=== PATIENT | female | born 1980 | race Caucasian/White ===

== ENCOUNTER 2017-10-28 17:46 | Inpatient (IN) | payer OTHER ==
[2017-10-28 20:36] LABS: Glucose,Whole Blood 118 mg/dL (75-99)
[2017-10-28] MEDS ORDERED: HYDROmorphone 0.5 MG/0.5 ML SYRINGE IVP PRN (23:01)
[2017-10-29] MEDS: METOPROLOL TARTRATE 12.5 MG TAB PO SCH ×3 (00:20→21:56)
[2017-10-29] MEDS: GABAPENTIN 300 MG CAP PO SCH ×4 (00:20→21:57)
[2017-10-29] MEDS: HYDROmorphone 2 MG TAB PO PRN ×4 (00:21→20:01)
[2017-10-29] MEDS: CYCLOBENZAPRINE 10 MG TAB PO SCH ×4 (00:21→21:57)
[2017-10-29] MEDS: PREGABALIN 100 MG CAP PO SCH ×4 (00:26→21:57)
[2017-10-29] MEDS: INSULIN DETEMIR 100 UNIT/ML 10 ML VIAL SQ SCH ×2 (00:26→21:56)
[2017-10-29] MEDS: ALPRAZolam 0.5 MG TAB PO SCH ×4 (00:26→21:57)
[2017-10-29] MEDS: PIPERACILLIN-TAZOBACTAM 3.375 GM in DEXTROSE/WATER 1 50ML.BAG IVPB SCH ×3 (00:34→16:10)
[2017-10-29] MEDS: SODIUM CHLORIDE 0.9% 1,000 ML IV SCH ×4 (00:34→21:57)
[2017-10-29 01:59] LABS: Glucose,Whole Blood 153 mg/dL (75-99)
[2017-10-29] MEDS: traMADol 50 MG TAB PO PRN ×2 (03:43→14:59)
--- NOTE | 2017-10-29 04:13 | HP ---
HISTORY AND PHYSICAL CHIEF COMPLAINTS: Right diabetic foot and as well as diabetes mellitus. 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 The patient has noted a sore nonhealing in the right foot for some time and the patient has uncontrolled diabetes and the patient was transferred to [facility] as a direct admission. There is no history of fever, rigors or chills. No history of headache, loss of consciousness, seizures. PAST MEDICAL HISTORY: Diabetes, hypertension, history of pneumonia, history of small bowel obstruction , history of depression, history of TPN through IV in the outpatient. MEDICATIONS: Home medications: 1. Ultram 100 mg q.4h p.r.n. 2. Coumadin 2.5 mg Thursday and Thursday and 10 mg Thursday, Thursday. 3. Lyrica 200 mg t.i.d. 4. Lopressor 12.5 mg b.i.d. 5. NovoLog 80 subcu q.h.s. a.c. b.i.d. 6. Gabapentin 60 mg t.i.d. 7. Pristiq 100 mg daily. 8. Flexeril 10 mg t.i.d. 9. Ecotrin 81 mg. 10.Abilify 5 mg daily. 11.Xanax 1 mg p.o. t.i.d. ALLERGIES: CYMBALTA. FAMILY HISTORY: History of rheumatoid arthritis in the family. SOCIAL HISTORY: Previous history of smoking. No history of current smoking or alcohol intake. REVIEW OF SYSTEMS: ENT: No diminished vision or hearing. Cardio system: No angina or palpitations. Respiratory: As mentioned earlier. GI no nausea or vomiting. no dysuria. Nervous system: No numbness, weakness. Allergy/Immunology: No asthma or hayfever. Musculoskeletal: As mentioned earlier. HEMATOLOGY/ONCOLOGY: As mentioned earlier. Endocrine: Diabetes. Constitutional: As mentioned earlier. Rheumatology: Negative. Dermatology: Negative. Psychiatric : mentioned earlier. PHYSICAL EXAMINATION: The patient is alert and oriented times three. Pulse is 86, blood pressure 111/ 79, respirations 14, temperature 98 degrees, pulse ox 97% on room air. HEENT: Conjunctivae normal. Oral mucosa moist. Neck is no jugular venous distention. No carotid bruit. No lymph nodes enlargement. Cardiovascular system: S1, S2. No S3, no S4. Respiratory: Breath sounds diminished in the bases. A few scattered rhonchi. No crackles. ABDOMEN: Soft, nontender. No mass palpable. Legs: Significant ulceration of the right sole present, otherwise status post amputation of the 3/5 toes on the right and 5/5 toes on the left. Nervous system: Higher functions as mentioned. Moves all 4 limbs. Otherwise minimal sensory abnormalities noted in the lower limbs. Joints: No Active deforming arthropathy. Lymphatics: No lymph nodes palpable in the neck, axillae or groin. Skin status post central line on the right chest showing minimal brownish discoloration at the entry site. Sutures still present which has been dressed periodically by the home care. LABORATORY DATA: Labs are glucose 118. ASSESSMENT: 1. Right foot ulcer, diabetic ulcer, rule out osteomyelitis. 2. Diabetes type 2 uncontrolled. 3. Right central line for intravenous access for home TPN. 4. 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 5. History of multiple toe amputations. 6. Hypertension. 7. History of pneumonia. 8. History of peripheral neuropathy. 9. History of seizure disorder. 10.History of chronic pain syndrome. 11.History of Methicillin-resistant Staphylococcus aureus. 12.Depression. 13.Coumadin monitoring. RECOMMENDATIONS AND DISCUSSION: In this 37-year-old woman who presented with multiple complex medical issues, we will monitor the patient closely, continue the current medications, management and symptomatic treatment. We will initiate broad-spectrum IV antibiotics. Infectious Disease and vascular surgery consultations. Resume the home medications. Monitor blood sugars closely. Hemoglobin A1c. Cultures. Guarded prognosis because of multiple complex medical issues. Further recommendations to follow. A copy of dictation being forwarded to Dr. Rose Walter who is the primary care physician. MMSELENAL / ANUN: [id number] / MTDD
[2017-10-29 07:14] LABS: Glucose,Whole Blood 114 mg/dL (75-99)
[2017-10-29] MEDS: INSULIN ASPART 100 UNIT/ML 1 ML 10 ML VIAL SQ SCH ×4 (07:36→21:56)
[2017-10-29] MEDS: ACETAMINOPHEN TAB 325 MG TAB PO PRN ×2 (07:36→14:59)
[2017-10-29] MEDS: ARIPiprazole 5 MG TAB PO SCH (07:39)
[2017-10-29] MEDS: ASPIRIN 81 MG PO SCH (07:39)
[2017-10-29] MEDS: PANTOPRAZOLE 40 MG/10 ML VIAL IVP SCH (07:40)
[2017-10-29 08:44] LABS: Anisocytosis Slight; Basophils % (A) 0 %; Eosinophils # (A) 0.1 k/uL (0-0.7); Eosinophils % (A) 1 %; HCT 30.3 % (34.0-46.0); HGB 8.5 gm/dL (11.4-16.0); Hypochromasia Marked; Lymphocytes # (A) 2.5 k/uL (1.0-4.8); Lymphocytes % (A) 22 %; MCH 20.6 pg (25.0-35.0); MCHC 28.1 g/dL (31.0-37.0); MCV 73.2 fL (80.0-100.0); Mean Platelet Volume 6.9; Microcytosis Moderate; Monocytes # (A) 0.5 k/uL (0-1.0); Monocytes % (A) 4 %; Neutrophils # (A) 8.3 k/uL (1.3-7.7); Neutrophils % (A) 72 %; Platelet Count 352 k/uL (150-450); RBC 4.14 m/uL (3.80-5.40); RDW 17.8 % (11.5-15.5); WBC 11.5 k/uL (3.8-10.6)
[2017-10-29 08:57] LABS: INR 2.1 (<1.2)
[2017-10-29 09:03] LABS: Anion Gap 13 mmol/L; Blood Urea Nitrogen 6 mg/dL (7-17); Calcium 8.6 mg/dL (8.4-10.2); Carbon Dioxide 21 mmol/L (22-30); Chloride 107 mmol/L (98-107); Glucose 125 mg/dL (74-99); Magnesium 1.6 mg/dL (1.6-2.3); Phosphorus 3.3 mg/dL (2.5-4.5); Potassium 3.8 mmol/L (3.5-5.1); Sodium 141 mmol/L (137-145)
[2017-10-29 09:04] VITALS: BMI 28.6
--- NOTE | 2017-10-29 10:39 | P.CONS ---
History of Present Illness - Reason for Consult Consult date: 10/29/17 Foot wound - History of Present Illness This is a 37-year-old female patient who has history of previous amputations of the left 5 toes and toes one through 3 on the right foot secondary to osteomyelitis. Her last surgery was in July 2017. 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 Patient has underlying diabetes and she states her last hemoglobin A1c was 7 improved from 13 of last summer. Patient states that on the bottom of her right foot is started out as a blood blister that popped open and started draining a significant amount of blood. She has been following with a surgeon, Dr. Salas, in [place] and last saw him 2 days ago. She was also seen in the emergency center at [place] on October 18 and a culture was obtained. Her has been packing the wound with iodoform gauze. She developed increased pain to the ankle and foot with a throbbing type pain, fever, chills, increased weakness and went to [facility]. A right foot x-ray showed a displaced pathologic fracture in the base of the first metatarsal and concern for osteomyelitis with increased soft tissue swelling as well. Patient was given Zosyn. Her white count was 18.8 and INR 2.17. Urinalysis was negative for urinary tract infection. Lactic acid 1.8. Patient was then transferred to [facility] emergency center for further evaluation and was directly admitted. Patient states she still has fevers with temperature max of 102.2. Patient is maintained on Zosyn. Wound and blood cultures are ordered. Patient quit smoking in August 2017. Review of Systems All systems: negative Constitutional: Reports chills, Reports fatigue, Reports fever, Denies anorexia , Denies poor appetite Eyes: denies blurred vision, denies pain Ears, nose, mouth and throat: Denies dental pain, Denies headache, Denies mouth pain, Denies sore throat, Denies vertigo Cardiovascular: Reports leg edema, Denies chest pain, Denies decreased exercise tolerance, Denies dyspnea on exertion, Denies edema, Denies lightheadedness, Denies shortness of breath, Denies syncope Respiratory: Denies cough, Denies cough with sputum, Denies dyspnea, Denies excessive sputum, Denies hemoptysis, Denies home oxygen, Denies wheezing Gastrointestinal: Denies abdominal pain, Denies diarrhea, Denies nausea, Denies vomiting Genitourinary: Denies dysuria, Denies hematuria Musculoskeletal: Denies myalgias Integumentary: Reports wounds, Denies pruritus, Denies rash Neurological: Denies numbness, Denies weakness Psychiatric: Denies anxiety, Denies depression Endocrine: Denies fatigue, Denies weight change Past Medical History Past Medical History: Diabetes Mellitus, Hypertension, Pneumonia Additional Past Medical History / Comment(s): murmur, [place] pne 3 years ago. pt stated that "2 months ago she coughed up some bloody mucous and dr was going to order a ct scan of chest but has'nt yet-no further episodes", neuropathy,"? seizure unk reason 4 months ago fell and fx rt fibula-casted /no sx.uti's, chronic pain, mesenteric thrombosis, occ heartburn, pvd(toe amputations, psoriases.per pt- had c-diff at [facility] and mrsa 2012 at [facility](face) History of Any Multi-Drug Resistant Organisms: MRSA Year Discovered:: 2012 at [facility](per pt) MDRO Source:: face Additional Past Surgical History / Comment(s): all toes on lt foot ampt, rt foot first,2nd,3rd toes amputated. 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 sx on fallopian tubes"put [place] in fallopian tubes". Past Anesthesia/Blood Transfusion Reactions: No Reported Reaction Smoking Status: Former smoker Additional Past Alcohol Use History / Comment(s): Patient was a smoker and started 15 years of age one and half to 2 packs per day and quit in August 2017. She occasionally uses marijuana. No medical marijuana card. She denies any other street drug use. She denies any alcohol use. Patient lives at home with her and 3 children. There are 2 dogs in the home. [facility] is in place. Patient is not employed. - Past Family History Brother(s) Family Medical History: Rheumatoid Arthritis (RA) Mother Family Medical History: Congestive Heart Failure (CHF), Myocardial Infarction ( [place]) Father Family Medical History: Diabetes Mellitus, Hyperlipidemia, Hypertension Medications and Allergies Home Medications Medication Instructions Recorded Confirmed Type ALPRAZolam [Xanax] 1 mg PO TID 10/28/17 10/28/17 History ARIPiprazole [Abilify] 5 mg PO DAILY 10/28/17 10/28/17 History Aspirin EC [Ecotrin Low Dose] 81 mg PO DAILY 10/28/17 10/28/17 History Cyclobenzaprine [Flexeril] 10 mg PO TID 10/28/17 10/28/17 History Desvenlafaxine Succinate [Pristiq] 100 mg PO DAILY@1200 10/28/17 10/28/17 History Gabapentin 600 mg PO TID 10/28/17 10/28/17 History Insulin Aspart [NovoLOG 80 unit SQ HS 10/28/17 10/28/17 History (formulary)] Insulin Aspart [NovoLOG See Protocol SQ AC-BID 10/28/17 10/28/17 History (formulary)] Metoprolol Tartrate [Lopressor] 12.5 mg PO BID 10/28/17 10/28/17 History Pregabalin [Lyrica] 200 mg PO TID 10/28/17 10/28/17 History Warfarin [Coumadin] 10 mg PO MOFR 10/28/17 10/28/17 History Warfarin [Coumadin] 12.5 mg PO SUTUWETHSA 10/28/17 10/28/17 History traMADol HCL [Ultram] 100 mg PO Q4HR PRN 10/28/17 10/28/17 History Allergies Allergy/AdvReac Type Severity Reaction Status Date / Time duloxetine [From Cymbalta] AdvReac SEZIURES Verified 10/28/17 21:15 Physical Exam Vitals: Vital Signs Temp Pulse Resp BP Pulse Ox 10/29/17 07:00 102.2 F H 98 16 136/85 97 10/28/17 23:00 97.9 F 85 16 140/84 99 10/28/17 21:00 98.0 F 86 14 111/79 96 Intake and Output 10/28/17 10/29/17 10/29/17 22:59 06:59 14:59 Other: Voiding Method Toilet # Voids 0 1 Weight 74.843 kg 75.8 kg 75.8 kg Patient Weight 10/30/17 06:59 Weight 75.8 kg Gen: This is a 37-year-old female. She is sitting up in bed and appears to be comfortable and in no acute distress. HEENT: Head is atraumatic, normocephalic. Pupils equal, round. Sclerae is anicteric. Conjunctiva pink. Mucous members of the mouth are moist. Dentition is in poor order. No thrush noted. NECK: Supple. No JVD. No lymphadenopathy. No thyromegaly. LUNGS: Clear to auscultation. No wheezes or rhonchi. No intercostal retractions. HEART: Regular rate and rhythm. No murmur. ABDOMEN: Soft. Bowel sounds are present. No masses. No tenderness. EXTREMITIES: Left foot has noted amputation of all 5 toes. Dorsalis pedis is weak. Right foot has dressing in place which was not removed. Assessment deferred to Dr. Hills. NEUROLOGICAL: Patient is awake, alert and oriented x3. Cranial nerves 2 through 12 are grossly intact. Results Results: Laboratory Results WBC 11.5 k/uL (3.8-10.6) H 10/29/17 08:03 RBC 4.14 m/uL (3.80-5.40) 10/29/17 08:03 Hgb 8.5 gm/dL (11.4-16.0) L 10/29/17 08:03 Hct 30.3 % (34.0-46.0) L 10/29/17 08:03 MCV 73.2 fL (80.0-100.0) L 10/29/17 08:03 MCH 20.6 pg (25.0-35.0) L 10/29/17 08:03 MCHC 28.1 g/dL (31.0-37.0) L 10/29/17 08:03 RDW 17.8 % (11.5-15.5) H 10/29/17 08:03 Plt Count 352 k/uL (150-450) 10/29/17 08:03 Neutrophils % 72 % 10/29/17 08:03 Lymphocytes % 22 % 10/29/17 08:03 Monocytes % 4 % 10/29/17 08:03 Eosinophils % 1 % 10/29/17 08:03 Basophils % 0 % 10/29/17 08:03 Neutrophils # 8.3 k/uL (1.3-7.7) H 10/29/17 08:03 Lymphocytes # 2.5 k/uL (1.0-4.8) 10/29/17 08:03 Monocytes # 0.5 k/uL (0-1.0) 10/29/17 08:03 Eosinophils # 0.1 k/uL (0-0.7) 10/29/17 08:03 Basophils # 0.0 k/uL (0-0.2) 10/29/17 08:03 Hypochromasia Marked 10/29/17 08:03 Anisocytosis Slight 10/29/17 08:03 Microcytosis Moderate 10/29/17 08:03 PT 19.0 sec (9.0-12.0) H 10/29/17 08:03 INR 2.1 (<1.2) H 10/29/17 08:03 Sodium 141 mmol/L (137-145) 10/29/17 08:03 Potassium 3.8 mmol/L (3.5-5.1) 10/29/17 08:03 Chloride 107 mmol/L (98-107) 10/29/17 08:03 Carbon Dioxide 21 mmol/L (22-30) L 10/29/17 08:03 Anion Gap 13 mmol/L 10/29/17 08:03 BUN 6 mg/dL (7-17) L 10/29/17 08:03 Creatinine 0.71 mg/dL (0.52-1.04) 10/29/17 08:03 Est GFR (MDRD) Af Amer >60 (>60 ml/min/1.73 sqM) 10/29/17 08:03 Est GFR (MDRD) Non-Af >60 (>60 ml/min/1.73 sqM) 10/29/17 08:03 Glucose 125 mg/dL (74-99) H 10/29/17 08:03 POC Glucose (mg/dL) 114 mg/dL (75-99) H 10/29/17 07:06 POC Glu Coal Deliverer ID 10/29/17 07:06 Plasma Lactic Acid Jameson 1.1 mmol/L (0.7-2.0) 10/29/17 09:13 Calcium 8.6 mg/dL (8.4-10.2) 10/29/17 08:03 Phosphorus 3.3 mg/dL (2.5-4.5) 10/29/17 08:03 Magnesium 1.6 mg/dL (1.6-2.3) 10/29/17 08:03 CBC & Chem 7: 10/29/17 08:03 10/29/17 08:03 Labs: Abnormal Lab Results - Last 24 Hours (Table) 10/28/17 10/29/17 10/29/17 Range/Units 20:35 01:56 07:06 WBC (3.8-10.6) k/uL Hgb (11.4-16.0) gm/dL Hct (34.0-46.0) % MCV (80.0-100.0) fL MCH (25.0-35.0) pg MCHC (31.0-37.0) g/dL RDW (11.5-15.5) % Neutrophils # (1.3-7.7) k/uL PT (9.0-12.0) sec INR (<1.2) Carbon Dioxide (22-30) mmol/L BUN (7-17) mg/dL Glucose (74-99) mg/dL POC Glucose (mg/dL) 118 H 153 H 114 H (75-99) mg/dL 10/29/17 10/29/17 10/29/17 Range/Units 08:03 08:03 08:03 WBC 11.5 H (3.8-10.6) k/uL Hgb 8.5 L (11.4-16.0) gm/dL Hct 30.3 L (34.0-46.0) % MCV 73.2 L (80.0-100.0) fL MCH 20.6 L (25.0-35.0) pg MCHC 28.1 L (31.0-37.0) g/dL RDW 17.8 H (11.5-15.5) % Neutrophils # 8.3 H (1.3-7.7) k/uL PT 19.0 H (9.0-12.0) sec INR 2.1 H (<1.2) Carbon Dioxide 21 L (22-30) mmol/L BUN 6 L (7-17) mg/dL Glucose 125 H (74-99) mg/dL POC Glucose (mg/dL) (75-99) mg/dL Assessment and Plan Plan: This is a 37-year-old female patient presents to the hospital with sepsis secondary to nonhealing wound to the right foot plantar surface. Patient is currently on Zosyn and vancomycin will be added. Bone scan will be ordered. Local wound care will be addressed. Patient is also followed by Dr. Obrien. Continue supportive care. Further recommendations as patient process. The above dictated assessment and findings were discussed with Dr. Hills. The impression and plan of care have been directed as dictated. Katie Topete nurse practitioner acting as scribe for Dr. Hills.
--- NOTE | 2017-10-29 10:57 | XR ---
EXAMINATION TYPE: XR foot complete RT DATE OF EXAM: 10/29/2017 COMPARISON: 10/28/2017 HISTORY: 37-year-old female uncontrolled diabetes, evaluate for right foot osteomyelitis TECHNIQUE: 3 views FINDINGS: Prior multiple toe amputations. Clinical correlation will be required. Somewhat irregular appearance to a suspected prior first mid metatarsal osteotomy. There appears to be a nonhealed fracture at the base of the first metatarsal. Prior amputations of the second and third toes with some areas of chron ic bony ankylosis at the MTP joints. There is osseous erosion of the distal phalanx of the fourth toe of uncertain chronicity. Old healed angulated fracture deformity fifth metatarsal neck. Assessment o f the fifth distal phalanx limited due to bony overlap. Soft tissue swelling forefoot and midfoot. Sm all plantar calcaneal spur. Incompletely healed oblique fracture distal fibula. IMPRESSION: 1. Multiple prior toe amputations and areas of chronic posttraumatic and/or postinfectious sequela. 2. Clinical correlation will be required particularly at the distal phalanx of the fourth toe which c ould be a site of remote osteomyelitis if there is no overlying active soft tissue ulcer. 3. The first mid metatarsal osteotomy margin appears irregular and osteomyelitis here is difficult to exclude. 4. Suspect a subacute, healing fracture at the base of the first metatarsal. 5. Prior second and third toe osteotomies. There is irregularity here which could reflect chronic pos ttraumatic/infectious sequela. If there is overlying ulcer, osteomyelitis at these additional sites a re difficult to exclude.
[2017-10-29] MEDS: DESVENLAFAXINE SUCCINATE 50 MG TAB.ER.24H PO SCH (13:18)
[2017-10-29 13:53] LABS: Glucose,Whole Blood 125 mg/dL (75-99)
--- NOTE | 2017-10-29 14:15 | NM ---
EXAMINATION TYPE: NM bone 3 phase DATE OF EXAM: 10/29/2017 COMPARISON: Radiograph 10/29/2017 HISTORY: 37-year-old female open sore along the wall of the right foot for one week arising from a po sterior. Attention right foot, mid fourth metatarsal. Technique: Triple phase bone scintigraphy was performed following the injection of26.9 mCi Tc 99m MDP . Immediate images and 3 hours post injection images acquired. Imaging performed of the bilateral di stal lower extremities. FINDINGS: Flow images show slight asymmetric hyperemia to the right midfoot region. Pool images show asymmetric increased activity to the right mid and medial forefoot and mid foot. Delayed images show focal intense activity along the right lateral malleolus and along the residual f irst metatarsal. There is moderate activity at the end of the second and third ray amputations. No fo misti intense activity at the tip of the fourth toe. No focal intense uptake seen along the plantar asp ect of either foot. IMPRESSION: 1. The greatest degree of intense activity is present along the residual first metatarsal and osteomy elitis would be difficult to exclude here especially if there is an associated ulcer. 2. Some of the intense uptake is present at the midfoot level and most likely relates to the first me tatarsal base fracture. 3. Lesser degree but still moderate focal uptake at the ends of the second and third ray amputation. These areas would also be suspicious if there are associated soft tissue ulcers. Radiographic follow- up can be performed. 4. Focal intense uptake at the lateral malleolus compatible with incompletely healed fracture.
[2017-10-29] MEDS ORDERED: IBUPROFEN 400 MG TAB PO PRN (16:18)
[2017-10-29 17:16] LABS: Glucose,Whole Blood 145 mg/dL (75-99)
[2017-10-29] MEDS: WARFARIN 2.5 MG TAB PO SCH (17:21)
--- NOTE | 2017-10-29 20:58 | P.PN ---
Subjective Progress Note Date: 10/29/17 Progress note being dictated for Dr. Thompson. Interval history: This is a 37-year-old female admitted with multiple complex medical issues including right foot ulcer, diabetic ulcer, possible osteomyelitis, brittle diabetes mellitus. Evaluated by infectious disease with recommendations noted. Maintained on broad-spectrum IV antibiotics. Bone scan pending. Vascular surgery consult in place with recommendations pending. Blood sugars controlled, hemoglobin A1c pending. Objective - Vital Signs Vital signs: Vital Signs Temp 101.6 F H 10/29/17 15:00 Pulse 91 10/29/17 15:00 Resp 16 10/29/17 15:00 BP 137/89 10/29/17 15:00 Pulse Ox 98 10/29/17 15:00 Intake & Output 10/28/17 10/29/17 10/29/17 18:59 06:59 18:59 Intake Total 440 Balance 440 Weight 75.8 kg 75.8 kg Intake: Oral 440 Other: Voiding Method Toilet # Voids 1 3 # Bowel Movements 0 - Exam PHYSICAL EXAM: VITAL SIGNS: [As above] GENERAL: Sitting up in bed, no acute distress HEENT: Conjunctivae normal. eyes normal. Oral mucosa moist NECK: No JVD. No thyroid enlargement. No LNs CARDIOVASCULAR: S1, S2 muffled. No murmur RESPIRATION: Breath sounds diminished in the bases. Occasional scattered rhonchi. No crackles. ABDOMEN: Soft, nontender . No guarding. no masses palpable.Bowel sounds heard. LEGS: Significant ulcerations of the right sole present, status post amputation of 3/5 toes of right foot and 5/5 toes on the left. Right foot dressing in place. PSYCHIATRY: Alert and oriented -3, mood and affect normal. NERVOUS SYSTEM: Cranial N 2-12 grossly normal. Moves all 4 limbs. Diffuse weakness No focal deficits. Skin: Right chest sutures Joints: No active swelling. No inflammation. Lymphatic system. No LN neck axilla or groin. - Labs CBC & Chem 7: 10/29/17 08:03 10/29/17 08:03 Labs: Abnormal Lab Results - Last 24 Hours (Table) 10/28/17 10/29/17 10/29/17 Range/Units 20:35 01:56 07:06 WBC (3.8-10.6) k/uL Hgb (11.4-16.0) gm/dL Hct (34.0-46.0) % MCV (80.0-100.0) fL MCH (25.0-35.0) pg MCHC (31.0-37.0) g/dL RDW (11.5-15.5) % Neutrophils # (1.3-7.7) k/uL PT (9.0-12.0) sec INR (<1.2) Carbon Dioxide (22-30) mmol/L BUN (7-17) mg/dL Glucose (74-99) mg/dL POC Glucose (mg/dL) 118 H 153 H 114 H (75-99) mg/dL 10/29/17 10/29/17 10/29/17 Range/Units 08:03 08:03 08:03 WBC 11.5 H (3.8-10.6) k/uL Hgb 8.5 L (11.4-16.0) gm/dL Hct 30.3 L (34.0-46.0) % MCV 73.2 L (80.0-100.0) fL MCH 20.6 L (25.0-35.0) pg MCHC 28.1 L (31.0-37.0) g/dL RDW 17.8 H (11.5-15.5) % Neutrophils # 8.3 H (1.3-7.7) k/uL PT 19.0 H (9.0-12.0) sec INR 2.1 H (<1.2) Carbon Dioxide 21 L (22-30) mmol/L BUN 6 L (7-17) mg/dL Glucose 125 H (74-99) mg/dL POC Glucose (mg/dL) (75-99) mg/dL 10/29/17 Range/Units 13:40 WBC (3.8-10.6) k/uL Hgb (11.4-16.0) gm/dL Hct (34.0-46.0) % MCV (80.0-100.0) fL MCH (25.0-35.0) pg MCHC (31.0-37.0) g/dL RDW (11.5-15.5) % Neutrophils # (1.3-7.7) k/uL PT (9.0-12.0) sec INR (<1.2) Carbon Dioxide (22-30) mmol/L BUN (7-17) mg/dL Glucose (74-99) mg/dL POC Glucose (mg/dL) 125 H (75-99) mg/dL Microbiology - Last 24 Hours (Table) 10/29/17 00:45 Wound Culture - Preliminary Foot - Right Assessment and Plan Assessment: 1. Right foot ulcer, diabetic ulcer, rule out osteomyelitis 2. Diabetes mellitus type 2, uncontrolled, hemoglobin A1c pending 3. Right central line for IV access for home TPN 4. 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 multiple toe amputations 6. Hypertension 7. Seizure disorder 8. Coumadin monitoring 9. History of MRSA Plan: Continue on current medication regime ,monitoring and symptomatic treatment. Bone scan, foot x-ray pending. Maintain IV antibiotics, wound care as per infectious disease. Follow cultures closely. Hemoglobin A1c pending. Close monitoring of Accu-Cheks. Vascular surgery consult in place with recommendations pending. Further recommendations to follow. Prognosis guarded given multiple complexMedical issues. The impression and plan of care has been dictated as directed. : I performed a history and examination of this patient, discussed the same with the dictator. I agree with the dictator's note ,documented as a scribe. Any additional findings or plans will be noted.
[2017-10-29 21:01] LABS: Hemoglobin A1C 6.2 % (4.0-6.0)
[2017-10-29 21:35] LABS: Glucose,Whole Blood 146 mg/dL (75-99)
--- NOTE | 2017-10-29 22:30 | P.CON ---
Consult Note - . Consult date: 10/29/17 Assessment/Plan:: This is a 37-year-old female patient who has history of previous amputations of the left 5 toes and toes one through 3 on the right foot secondary to osteomyelitis. Her last surgery was in July 2017. 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 Patient has underlying diabetes and she states her last hemoglobin A1c was 7 improved from 13 of last summer. Patient states that on the bottom of her right foot is started out as a blood blister that popped open and started draining a significant amount of blood. She has been following with a surgeon, Dr. Salas, in [place] and last saw him 2 days ago. She was also seen in the emergency center at [place] on October 18 and a culture was obtained. Her has been packing the wound with iodoform gauze. She developed increased pain to the ankle and foot with a throbbing type pain, fever, chills, increased weakness and went to [facility]. A right foot x-ray showed a displaced pathologic fracture in the base of the first metatarsal and concern for osteomyelitis with increased soft tissue swelling as well. Patient was given Zosyn. Her white count was 18.8 and INR 2.17. Urinalysis was negative for urinary tract infection. Lactic acid 1.8. Patient was then transferred to [facility] emergency center for further evaluation and was directly admitted. Patient states she still has fevers with temperature max of 102.2. Patient is maintained on Zosyn. Wound and blood cultures are ordered. Patient quit smoking in August 2017. Please see the consult note as dictated by PODIATRIC TECHNICIAN Naomi Katie Topete. 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 She has diabetes and has had difficulties with peripheral vascular disease has had a transmetatarsal amputation to her left foot and amputation of great first and fifth toe of the right foot. Now is evidence of the plantar ulceration to the right foot for which Opticell silver will be applied. The patient's imaging study reveals evidence of significant abnormality to the feet, the intensity of the uptake in the bone scan does bring up the possibility of underlying fracture but osteomy this cannot be directly excluded. The patient does not have significant renal failure and may be a candidate for further imaging specifically MRI to delineate the underlying disease process to the foot. Wound culture is pending in current antibiotic therapy is appropriate. The patient's Jesus site appears to have some scant drainage. However is nontender. She's due for dressing changes will occur in a culture obtained of the drainage to further help direct her course of therapy. Concern would be since she is on TPN and temperature 102 to the possibility of infection to this catheter site has been in place since last April. TPN is on hold until there is evidence of negative blood cultures. If underlying bony infection is found to be prudent to determine if there is any outpatient data relating to this, this may help with considerations for outpatient hyperbaric oxygen therapy which may be needed for foot salvage. Leukocytosis is recommended a current underlying infection which is to the foot with ulceration and possible bloodstream infection from her Jesus catheter. I agree with evaluation, assessment and plan as dictated by nurse practitioner Mrs. Katie Topete.
[2017-10-30] MEDS: PIPERACILLIN-TAZOBACTAM 3.375 GM in DEXTROSE/WATER 1 50ML.BAG IVPB SCH ×3 (00:50→16:09)
[2017-10-30] MEDS: traMADol 50 MG TAB PO PRN ×3 (00:52→16:02)
[2017-10-30] MEDS: HYDROmorphone 2 MG TAB PO PRN ×3 (04:31→20:45)
[2017-10-30] MEDS: SODIUM CHLORIDE 0.9% 1,000 ML IV SCH ×3 (06:48→20:47)
[2017-10-30 07:21] LABS: Glucose,Whole Blood 135 mg/dL (75-99)
[2017-10-30] MEDS: PANTOPRAZOLE 40 MG/10 ML VIAL IVP SCH (08:07)
[2017-10-30] MEDS: PREGABALIN 100 MG CAP PO SCH ×3 (08:07→20:56)
[2017-10-30] MEDS: ALPRAZolam 0.5 MG TAB PO SCH ×3 (08:08→20:56)
[2017-10-30] MEDS: CYCLOBENZAPRINE 10 MG TAB PO SCH ×3 (08:08→20:57)
[2017-10-30] MEDS: ARIPiprazole 5 MG TAB PO SCH (08:09)
[2017-10-30] MEDS: GABAPENTIN 300 MG CAP PO SCH ×3 (08:09→20:56)
[2017-10-30] MEDS: ASPIRIN 81 MG PO SCH (08:09)
[2017-10-30] MEDS: METOPROLOL TARTRATE 12.5 MG TAB PO SCH ×2 (08:09→20:57)
[2017-10-30] MEDS: INSULIN ASPART 100 UNIT/ML 1 ML 10 ML VIAL SQ SCH ×4 (08:10→20:57)
[2017-10-30 09:33] LABS: Anion Gap 12 mmol/L; Blood Urea Nitrogen 8 mg/dL (7-17); Calcium 8.6 mg/dL (8.4-10.2); Carbon Dioxide 23 mmol/L (22-30); Chloride 107 mmol/L (98-107); Glucose 143 mg/dL (74-99); Sodium 142 mmol/L (137-145)
[2017-10-30 09:38] LABS: Anisocytosis Slight; Basophils % (A) 0 %; Eosinophils # (A) 0.2 k/uL (0-0.7); Eosinophils % (A) 2 %; HCT 28.9 % (34.0-46.0); HGB 8.1 gm/dL (11.4-16.0); Hypochromasia Marked; Lymphocytes # (A) 2.2 k/uL (1.0-4.8); Lymphocytes % (A) 24 %; MCH 20.8 pg (25.0-35.0); MCHC 28.2 g/dL (31.0-37.0); MCV 73.6 fL (80.0-100.0); Mean Platelet Volume 8.3; Microcytosis Moderate; Monocytes # (A) 0.6 k/uL (0-1.0); Monocytes % (A) 6 %; Neutrophils # (A) 6.2 k/uL (1.3-7.7); Neutrophils % (A) 67 %; Platelet Count 327 k/uL (150-450); RBC 3.92 m/uL (3.80-5.40); WBC 9.3 k/uL (3.8-10.6)
[2017-10-30 11:29] LABS: Glucose,Whole Blood 126 mg/dL (75-99)
[2017-10-30] MEDS: DESVENLAFAXINE SUCCINATE 50 MG TAB.ER.24H PO SCH (12:30)
[2017-10-30] MEDS: ACETAMINOPHEN TAB 325 MG TAB PO PRN (12:30)
[2017-10-30 15:26] LABS: INR 2.7 (<1.2); Prothrombin Time 23.9 sec (9.0-12.0)
--- NOTE | 2017-10-30 15:29 | PN ---
PROGRESS NOTE DATE OF SERVICE: 10/30/2017 This is a 37-year-old woman who was admitted with right foot ulcer and is being evaluated for the possibility of osteomyelitis. A bone scan was done which showed multiple abnormalities, focal antiseptic uptake was noted. The patient is on broad- spectrum IV antibiotics. The patient also had diabetes mellitus type 2. The patient is complaining of severe pain, also. PHYSICAL EXAM: Alert and oriented x3. The pulse is 75, blood pressure 129/70, respirations 16, temperature 97.8, pulse ox 98% on room air. T-max 101.2. HEENT: Oral mucosa moist. Neck is no thyroid enlargement, no lymph node enlargement, no jugular venous distention. CARDIOVASCULAR SYSTEM: S1, S2, no S3, no S4. RESPIRATORY: Breath sounds diminished in the bases, a few scattered rhonchi, no crackles. ABDOMEN: Soft, nontender. No mass palpable. LEGS: Bilateral multiple toe amputations and right foot ulcer. NERVOUS SYSTEM: No focal deficits. LABS: WBC 9.9, hemoglobin is 8.1. ASSESSMENT: 1. Right foot ulcer, possible osteomyelitis. 2. Diabetes mellitus type 2, uncontrolled. Hemoglobin A1c pending. 3. Right central line for IV access for home TPN. 4. History of small and thrombosis possibly. 5. Multiple toe amputations. 6. Hypertension. 7. Seizure disorder. 8. Coumadin monitoring. 9. History of methicillin-resistant Staphylococcus aureus. RECOMMENDATION AND DISCUSSION: Recommend to continue current management and continue with symptomatic treatment. As this time, I recommend continue with current medications, broad-spectrum IV antibiotics. Otherwise, closely follow with Infectious Disease. Guarded prognosis. Further recommendations to follow. MMODL / IJN: [id number] / MTDD
[2017-10-30 16:55] LABS: Glucose,Whole Blood 116 mg/dL (75-99)
[2017-10-30] MEDS: WARFARIN 10 MG TAB PO SCH (18:31)
[2017-10-30 20:46] LABS: Glucose,Whole Blood 169 mg/dL (75-99)
--- NOTE | 2017-10-30 20:54 | CONS ---
CONSULTATION This a 37-year-old, pleasant female. She has been admitted to [facility], patient has been transferred to [facility] for the evaluation of the right foot ulcer plantar aspect with the patient had a right big toe and second and third toe amputation in the past. She has this small ulcer on the plantar aspect, Ocampo grade 2 on the plantar aspect. There is slight tenderness noted. No discharge or redness noted. The patient also had a left transmetatarsal amputation in the past. PHYSICAL EXAMINATION: On examination, patient was seen in her room. Neck is supple. Trachea central. CHEST: Clear to auscultation. Abdomen is soft. Femoral pulses are present. Patient has a dorsalis pedis palpable on the right foot. The patient has a Ocampo grade 2 ulcer, plantar aspect, of the right foot. She had a big toe, 2nd toe, 3rd toe amputation in the past. No discharge or redness noted. Patient is under care of infectious disease with IV antibiotic and scheduled to have a bone scan. At this point, patient does not need any major surgical intervention. The patient will be need IV antibiotic and local wound care. If they need any surgical intervention, we will follow with you. Thank you for the consultation. MMODL / IJN: [id number] /
[2017-10-30] MEDS: INSULIN DETEMIR 100 UNIT/ML 10 ML VIAL SQ SCH (20:58)
--- NOTE | 2017-10-30 23:47 | P.PN ---
Subjective Progress Note Date: 10/30/17 Principal diagnosis: Fever This is a 37-year-old female patient who has history of previous amputations of the left 5 toes and toes one through 3 on the right foot secondary to osteomyelitis. Her last surgery was in July 2017. 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 Patient has underlying diabetes and she states her last hemoglobin A1c was 7 improved from 13 of last summer. Patient states that on the bottom of her right foot is started out as a blood blister that popped open and started draining a significant amount of blood. She has been following with a surgeon, Dr. Salas, in [place] and last saw him 2 days ago. She was also seen in the emergency center at [place] on October 18 and a culture was obtained. Her has been packing the wound with iodoform gauze. She developed increased pain to the ankle and foot with a throbbing type pain, fever, chills, increased weakness and went to [facility]. A right foot x-ray showed a displaced pathologic fracture in the base of the first metatarsal and concern for osteomyelitis with increased soft tissue swelling as well. Patient was given Zosyn. Her white count was 18.8 and INR 2.17. Urinalysis was negative for urinary tract infection. Lactic acid 1.8. Patient was then transferred to [facility] emergency center for further evaluation and was directly admitted. Patient states she still has fevers with temperature max of 102.2. Patient is maintained on Zosyn. Wound and blood cultures are ordered. Patient quit smoking in August 2017. 10/30/2017 patient has evidence of some residual fever 101.2 in the last day. Trending to improvement. There is evidence of multiple positive blood cultures. Objective - Vital Signs Vital signs: Vital Signs Temp 100.5 F H 10/30/17 22:51 Pulse 89 10/30/17 22:51 Resp 16 10/30/17 22:51 BP 131/74 10/30/17 22:51 Pulse Ox 95 10/30/17 22:51 Intake & Output 10/30/17 10/30/17 10/31/17 06:59 18:59 06:59 Intake Total 200 960 Balance 200 960 Intake: Oral 200 960 Other: Voiding Method Bedside Commode # Voids 1 3 2 # Bowel Movements 2 - Exam Gen: This is a 37-year-old female. She is sitting up in bed and appears to be comfortable and in no acute distress. HEENT: Head is atraumatic, normocephalic. Pupils equal, round. Sclerae is anicteric. Conjunctiva pink. Mucous members of the mouth are moist. Dentition is in poor order. No thrush noted. NECK: Supple. No JVD. No lymphadenopathy. No thyromegaly. LUNGS: Clear to auscultation. No wheezes or rhonchi. No intercostal retractions. HEART: Regular rate and rhythm. No murmur. ABDOMEN: Soft. Bowel sounds are present. No masses. No tenderness. EXTREMITIES: Left foot has noted amputation of all 5 toes. Dorsalis pedis is weak. Right foot has dressing in place which was not removed. Assessment deferred to Dr. Hills. NEUROLOGICAL: Patient is awake, alert and oriented x3. - Labs CBC & Chem 7: 10/30/17 08:20 10/30/17 08:20 Labs: Abnormal Lab Results - Last 24 Hours (Table) 10/29/17 10/30/17 10/30/17 Range/Units 08:03 07:16 08:20 Hgb 8.1 L (11.4-16.0) gm/dL Hct 28.9 L (34.0-46.0) % MCV 73.6 L (80.0-100.0) fL MCH 20.8 L (25.0-35.0) pg MCHC 28.2 L (31.0-37.0) g/dL RDW 18.0 H (11.5-15.5) % PT (9.0-12.0) sec INR (<1.2) Glucose (74-99) mg/dL POC Glucose (mg/dL) 135 H (75-99) mg/dL Hemoglobin A1c 6.2 H (4.0-6.0) % 10/30/17 10/30/17 10/30/17 Range/Units 08:20 11:23 14:49 Hgb (11.4-16.0) gm/dL Hct (34.0-46.0) % MCV (80.0-100.0) fL MCH (25.0-35.0) pg MCHC (31.0-37.0) g/dL RDW (11.5-15.5) % PT 23.9 H (9.0-12.0) sec INR 2.7 H (<1.2) Glucose 143 H (74-99) mg/dL POC Glucose (mg/dL) 126 H (75-99) mg/dL Hemoglobin A1c (4.0-6.0) % 10/30/17 10/30/17 Range/Units 16:49 20:31 Hgb (11.4-16.0) gm/dL Hct (34.0-46.0) % MCV (80.0-100.0) fL MCH (25.0-35.0) pg MCHC (31.0-37.0) g/dL RDW (11.5-15.5) % PT (9.0-12.0) sec INR (<1.2) Glucose (74-99) mg/dL POC Glucose (mg/dL) 116 H 169 H (75-99) mg/dL Hemoglobin A1c (4.0-6.0) % Microbiology - Last 24 Hours (Table) 10/29/17 09:25 Blood Culture Gram Stain - Preliminary Blood Blood Culture - Preliminary Gram Neg Bacilli 10/29/17 09:13 Blood Culture Gram Stain - Preliminary Blood Blood Culture - Preliminary Gram Neg Bacilli 10/30/17 01:05 Gram Stain - Preliminary Catheter Site Wound Culture - Preliminary 10/29/17 09:25 Blood Culture - Final Blood 10/29/17 09:13 Blood Culture - Final Blood 10/29/17 00:45 Gram Stain - Preliminary Foot - Right Wound Culture - Preliminary Presumptive Staph aureus Strep agalactiae - (group b) Laboratory Results WBC 9.3 k/uL (3.8-10.6) 10/30/17 08:20 RBC 3.92 m/uL (3.80-5.40) 10/30/17 08:20 Hgb 8.1 gm/dL (11.4-16.0) L 10/30/17 08:20 Hct 28.9 % (34.0-46.0) L 10/30/17 08:20 MCV 73.6 fL (80.0-100.0) L 10/30/17 08:20 MCH 20.8 pg (25.0-35.0) L 10/30/17 08:20 MCHC 28.2 g/dL (31.0-37.0) L 10/30/17 08:20 RDW 18.0 % (11.5-15.5) H 10/30/17 08:20 Plt Count 327 k/uL (150-450) 10/30/17 08:20 Neutrophils % 67 % 10/30/17 08:20 Lymphocytes % 24 % 10/30/17 08:20 Monocytes % 6 % 10/30/17 08:20 Eosinophils % 2 % 10/30/17 08:20 Basophils % 0 % 10/30/17 08:20 Neutrophils # 6.2 k/uL (1.3-7.7) 10/30/17 08:20 Lymphocytes # 2.2 k/uL (1.0-4.8) 10/30/17 08:20 Monocytes # 0.6 k/uL (0-1.0) 10/30/17 08:20 Eosinophils # 0.2 k/uL (0-0.7) 10/30/17 08:20 Basophils # 0.0 k/uL (0-0.2) 10/30/17 08:20 Hypochromasia Marked 10/30/17 08:20 Anisocytosis Slight 10/30/17 08:20 Microcytosis Moderate 10/30/17 08:20 PT 23.9 sec (9.0-12.0) H 10/30/17 14:49 INR 2.7 (<1.2) H 10/30/17 14:49 Sodium 142 mmol/L (137-145) 10/30/17 08:20 Potassium 4.0 mmol/L (3.5-5.1) 10/30/17 08:20 Chloride 107 mmol/L (98-107) 10/30/17 08:20 Carbon Dioxide 23 mmol/L (22-30) 10/30/17 08:20 Anion Gap 12 mmol/L 10/30/17 08:20 BUN 8 mg/dL (7-17) 10/30/17 08:20 Creatinine 0.68 mg/dL (0.52-1.04) 10/30/17 08:20 Est GFR (MDRD) Af Amer >60 (>60 ml/min/1.73 sqM) 10/30/17 08:20 Est GFR (MDRD) Non-Af >60 (>60 ml/min/1.73 sqM) 10/30/17 08:20 Glucose 143 mg/dL (74-99) H 10/30/17 08:20 POC Glucose (mg/dL) 169 mg/dL (75-99) H 10/30/17 20:31 POC Glu Bulb Farmworker Carla Silva 10/30/17 20:[address] Glu mg/dL 131 10/29/17 08:03 Hemoglobin A1c 6.2 % (4.0-6.0) H 10/29/17 08:03 Plasma Lactic Acid Jameson 1.1 mmol/L (0.7-2.0) 10/29/17 09:13 Calcium 8.6 mg/dL (8.4-10.2) 10/30/17 08:20 Phosphorus 3.3 mg/dL (2.5-4.5) 10/29/17 08:03 Magnesium 1.6 mg/dL (1.6-2.3) 10/29/17 08:03 Microbiology 10/29/17 09:25 Blood Blood Culture Gram Stain - Preliminary 10/29/17 09:25 Blood Blood Culture - Preliminary Gram Neg Bacilli 10/29/17 09:13 Blood Blood Culture Gram Stain - Preliminary 10/29/17 09:13 Blood Blood Culture - Preliminary Gram Neg Bacilli 10/30/17 01:05 Catheter Site Gram Stain - Preliminary 10/30/17 01:05 Catheter Site Wound Culture - Preliminary 10/29/17 09:25 Blood Blood Culture - Final 10/29/17 09:13 Blood Blood Culture - Final 10/29/17 00:45 Foot - Right Gram Stain - Preliminary 10/29/17 00:45 Foot - Right Wound Culture - Preliminary Presumptive Staph aureus Strep agalactiae - (group b) Assessment and Plan (1) Uncontrolled diabetes mellitus Current Visit: Yes Status: Acute Code(s): E11.65 - TYPE 2 DIABETES MELLITUS WITH HYPERGLYCEMIA SNOMED Code(s): 755020145 (2) Gram negative sepsis Narrative/Plan: This 37-year-old female has a very extensive past medical 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 She has diabetes and has had difficulties with peripheral vascular disease has had a transmetatarsal amputation to her left foot and amputation of great first and fifth toe of the right foot. Now is evidence of the plantar ulceration to the right foot for which Opticell silver will be applied. The patient's imaging study reveals evidence of significant abnormality to the feet, the intensity of the uptake in the bone scan does bring up the possibility of underlying fracture but osteomy this cannot be directly excluded. The patient does not have significant renal failure and may be a candidate for further imaging specifically MRI to delineate the underlying disease process to the foot. Wound culture is pending in current antibiotic therapy is appropriate. The patient's Jesus site appears to have some scant drainage. However is nontender. She's due for dressing changes will occur in a culture obtained of the drainage to further help direct her course of therapy. Concern would be since she is on TPN and temperature 102 to the possibility of infection to this catheter site has been in place since last April. TPN is on hold until there is evidence of negative blood cultures. If underlying bony infection is found to be prudent to determine if there is any outpatient data relating to this, this may help with considerations for outpatient hyperbaric oxygen therapy which may be needed for foot salvage. Leukocytosis is recommended a current underlying infection which is to the foot with ulceration and possible bloodstream infection from her Jesus catheter. On 10/30/2017 the patient continues to have fever. The no evidence of multiple blood cultures growing gram-negative bacilli. With this the patient's TPN catheter which is a Jesus catheter needs to be removed as it is now the most likely source of her sepsis. It is currently not being utilized for TPN. TPN is on hold until her sepsis further improves. At the time of the call with the gram-negative bacilli in the blood , Zosyn therapy continues. Surgical consult for removal of her Jesus catheter has been made. Follow blood cultures requested in the morning. Continue local wound care to the foot ulcer which is not likely the source of her current sepsis. Current Visit: Yes Status: Acute Code(s): A41.50 - GRAM-NEGATIVE SEPSIS, UNSPECIFIED SNOMED Code(s): 262732378 (3) Infection due to Jesus catheter Current Visit: Yes Status: Acute Code(s): T80.219A - UNSP INFECTION DUE TO CENTRAL VENOUS CATHETER, INIT ENCNTR SNOMED Code(s): 612563906 (4) Diabetic ulcer of right foot with fat layer exposed Current Visit: Yes Status: Acute Code(s): E11.621 - TYPE 2 DIABETES MELLITUS WITH FOOT ULCER; L97.512 - NON-PRS CHRONIC ULCER OTH PRT RIGHT FOOT W FAT LAYER EXPOSED SNOMED Code(s): 195629414
[2017-10-31] MEDS: PIPERACILLIN-TAZOBACTAM 3.375 GM in DEXTROSE/WATER 1 50ML.BAG IVPB SCH ×3 (00:44→18:18)
[2017-10-31] MEDS: traMADol 50 MG TAB PO PRN ×4 (00:44→17:39)
[2017-10-31 02:58] LABS: Glucose,Whole Blood 160 mg/dL (75-99)
[2017-10-31] MEDS: HYDROmorphone 2 MG TAB PO PRN ×4 (03:00→20:25)
[2017-10-31] MEDS: SODIUM CHLORIDE 0.9% 1,000 ML IV SCH ×2 (05:48→15:21)
[2017-10-31 07:32] LABS: Glucose,Whole Blood 98 mg/dL (75-99)
[2017-10-31 08:00] LABS: Anisocytosis Slight; Basophils % (A) 0 %; Eosinophils # (A) 0.2 k/uL (0-0.7); Eosinophils % (A) 2 %; HCT 28.8 % (34.0-46.0); HGB 8.2 gm/dL (11.4-16.0); Hypochromasia Marked; Lymphocytes # (A) 2.9 k/uL (1.0-4.8); Lymphocytes % (A) 30 %; MCH 20.5 pg (25.0-35.0); MCHC 28.4 g/dL (31.0-37.0); MCV 72.4 fL (80.0-100.0); Microcytosis Moderate; Monocytes # (A) 0.7 k/uL (0-1.0); Monocytes % (A) 7 %; Neutrophils # (A) 5.7 k/uL (1.3-7.7); Neutrophils % (A) 58 %; Platelet Count 348 k/uL (150-450); RBC 3.98 m/uL (3.80-5.40); WBC 9.9 k/uL (3.8-10.6)
[2017-10-31 08:04] LABS: INR 3.2 (<1.2); Prothrombin Time 28.3 sec (9.0-12.0)
[2017-10-31 08:22] LABS: Anion Gap 15 mmol/L; Blood Urea Nitrogen 6 mg/dL (7-17); Calcium 8.7 mg/dL (8.4-10.2); Carbon Dioxide 22 mmol/L (22-30); Chloride 104 mmol/L (98-107); Glucose 97 mg/dL (74-99); Potassium 3.5 mmol/L (3.5-5.1); Sodium 141 mmol/L (137-145)
[2017-10-31] MEDS: INSULIN ASPART 100 UNIT/ML 1 ML 10 ML VIAL SQ SCH ×4 (08:44→21:53)
[2017-10-31] MEDS: ARIPiprazole 5 MG TAB PO SCH (08:48)
[2017-10-31] MEDS: CYCLOBENZAPRINE 10 MG TAB PO SCH ×3 (08:48→20:28)
[2017-10-31] MEDS: GABAPENTIN 300 MG CAP PO SCH ×3 (08:48→20:27)
[2017-10-31] MEDS: METOPROLOL TARTRATE 12.5 MG TAB PO SCH ×2 (08:48→20:28)
[2017-10-31] MEDS: ALPRAZolam 0.5 MG TAB PO SCH ×3 (08:48→20:33)
[2017-10-31] MEDS: ASPIRIN 81 MG PO SCH (08:48)
--- NOTE | 2017-10-31 08:48 | P.GSCN ---
History of Present Illness Consult date: 10/31/17 Reason for Consult: Infected Jesus History of present illness: The patient is a 37-year-old female who is been followed for a infection on her foot. She also has TPN which runs. She's noted to be septic and concern is for a infected Jesus. She has no complaints of pain at the insertion site. The IV has been in place since the fall. Review of Systems All systems: negative Past Medical History Past Medical History: Diabetes Mellitus, Hypertension, Pneumonia Additional Past Medical History / Comment(s): murmur, [place] pne 3 years ago. pt stated that "2 months ago she coughed up some bloody mucous and dr was going to order a ct scan of chest but has'nt yet-no further episodes", neuropathy,"? seizure unk reason 4 months ago fell and fx rt fibula-casted /no sx.uti's, chronic pain, mesenteric thrombosis, occ heartburn, pvd(toe amputations, psoriases.per pt- had c-diff at [facility] and mrsa 2012 at [facility]face) History of Any Multi-Drug Resistant Organisms: MRSA Year Discovered:: 2012 at [facility]per pt) MDRO Source:: face Additional Past Surgical History / Comment(s): all toes on lt foot ampt, rt foot first,2nd,3rd toes amputated. 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 sx on fallopian tubes"put springs in fallopian tubes". Past Anesthesia/Blood Transfusion Reactions: No Reported Reaction Smoking Status: Former smoker Additional Past Alcohol Use History / Comment(s): Patient was a smoker and started 15 years of age one and half to 2 packs per day and quit in August 2017. She occasionally uses marijuana. No medical marijuana card. She denies any other street drug use. She denies any alcohol use. Patient lives at home with her and 3 children. There are 2 dogs in the home. [facility] is in place. Patient is not employed. - Past Family History Brother(s) Family Medical History: Rheumatoid Arthritis (RA) Mother Family Medical History: Congestive Heart Failure (CHF), Myocardial Infarction ( NE) Father Family Medical History: Diabetes Mellitus, Hyperlipidemia, Hypertension Medications and Allergies Home Medications Medication Instructions Recorded Confirmed Type ALPRAZolam [Xanax] 1 mg PO TID 10/28/17 10/28/17 History ARIPiprazole [Abilify] 5 mg PO DAILY 10/28/17 10/28/17 History Aspirin EC [Ecotrin Low Dose] 81 mg PO DAILY 10/28/17 10/28/17 History Cyclobenzaprine [Flexeril] 10 mg PO TID 10/28/17 10/28/17 History Desvenlafaxine Succinate [Pristiq] 100 mg PO DAILY@1200 10/28/17 10/28/17 History Gabapentin 600 mg PO TID 10/28/17 10/28/17 History Insulin Aspart [NovoLOG 80 unit SQ HS 10/28/17 10/28/17 History (formulary)] Insulin Aspart [NovoLOG See Protocol SQ AC-BID 10/28/17 10/28/17 History (formulary)] Metoprolol Tartrate [Lopressor] 12.5 mg PO BID 10/28/17 10/28/17 History Pregabalin [Lyrica] 200 mg PO TID 10/28/17 10/28/17 History Warfarin [Coumadin] 10 mg PO MOFR 10/28/17 10/28/17 History Warfarin [Coumadin] 12.5 mg PO SUTUWETHSA 10/28/17 10/28/17 History traMADol HCL [Ultram] 100 mg PO Q4HR PRN 10/28/17 10/28/17 History Allergies Allergy/AdvReac Type Severity Reaction Status Date / Time duloxetine [From Cymbalta] AdvReac SEZIURES Verified 10/28/17 21:15 Surgical - Exam Osteopathic Statement: *. No significant issues noted on an osteopathic structural exam other than those noted in the History and Physical/Consult. Vital Signs Temp Pulse Resp BP Pulse Ox 98.0 F 86 14 111/79 96 10/28/17 21:00 10/28/17 21:00 10/28/17 21:00 10/28/17 21:00 10/28/17 21:00 - General well developed, well nourished, no distress - Eyes normal ocular movement - Respiratory normal respiratory effort - Integumentary No Jesus is seen. The patient has a PICC line in the right subclavian location. No surrounding cellulitis. Results - Labs 10/31/17 07:17 10/31/17 07:17 Abnormal Lab Results - Last 24 Hours (Table) 10/30/17 10/30/17 10/30/17 Range/Units 08:20 08:20 11:23 Hgb 8.1 L (11.4-16.0) gm/dL Hct 28.9 L (34.0-46.0) % MCV 73.6 L (80.0-100.0) fL MCH 20.8 L (25.0-35.0) pg MCHC 28.2 L (31.0-37.0) g/dL RDW 18.0 H (11.5-15.5) % PT (9.0-12.0) sec INR (<1.2) BUN (7-17) mg/dL Glucose 143 H (74-99) mg/dL POC Glucose (mg/dL) 126 H (75-99) mg/dL 10/30/17 10/30/17 10/30/17 Range/Units 14:49 16:49 20:31 Hgb (11.4-16.0) gm/dL Hct (34.0-46.0) % MCV (80.0-100.0) fL MCH (25.0-35.0) pg MCHC (31.0-37.0) g/dL RDW (11.5-15.5) % PT 23.9 H (9.0-12.0) sec INR 2.7 H (<1.2) BUN (7-17) mg/dL Glucose (74-99) mg/dL POC Glucose (mg/dL) 116 H 169 H (75-99) mg/dL 10/31/17 10/31/17 10/31/17 Range/Units 02:56 07:17 07:17 Hgb 8.2 L (11.4-16.0) gm/dL Hct 28.8 L (34.0-46.0) % MCV 72.4 L (80.0-100.0) fL MCH 20.5 L (25.0-35.0) pg MCHC 28.4 L (31.0-37.0) g/dL RDW 17.0 H (11.5-15.5) % PT (9.0-12.0) sec INR (<1.2) BUN 6 L (7-17) mg/dL Glucose (74-99) mg/dL POC Glucose (mg/dL) 160 H (75-99) mg/dL 10/31/17 Range/Units 07:17 Hgb (11.4-16.0) gm/dL Hct (34.0-46.0) % MCV (80.0-100.0) fL MCH (25.0-35.0) pg MCHC (31.0-37.0) g/dL RDW (11.5-15.5) % PT 28.3 H (9.0-12.0) sec INR 3.2 H (<1.2) BUN (7-17) mg/dL Glucose (74-99) mg/dL POC Glucose (mg/dL) (75-99) mg/dL Microbiology - Last 24 Hours (Table) 10/30/17 01:05 Gram Stain - Preliminary Catheter Site Wound Culture - Preliminary Presumptive Staph aureus 10/29/17 09:25 Blood Culture Gram Stain - Preliminary Blood Blood Culture - Preliminary Gram Neg Bacilli 10/29/17 09:13 Blood Culture Gram Stain - Preliminary Blood Blood Culture - Preliminary Gram Neg Bacilli 10/29/17 09:25 Blood Culture - Final Blood 10/29/17 09:13 Blood Culture - Final Blood 10/29/17 00:45 Gram Stain - Preliminary Foot - Right Wound Culture - Preliminary Presumptive Staph aureus Strep agalactiae - (group b) Diabetes panel 10/30/17 10/31/17 Range/Units 08:20 07:17 Sodium 142 141 (137-145) mmol/L Potassium 4.0 3.5 (3.5-5.1) mmol/L Chloride 107 104 (98-107) mmol/L Carbon Dioxide 23 22 (22-30) mmol/L BUN 8 6 L (7-17) mg/dL Creatinine 0.68 0.75 (0.52-1.04) mg/dL Glucose 143 H 97 (74-99) mg/dL Calcium 8.6 8.7 (8.4-10.2) mg/dL Calcium panel 10/30/17 10/31/17 Range/Units 08:20 07:17 Calcium 8.6 8.7 (8.4-10.2) mg/dL Pituitary panel 10/30/17 10/31/17 Range/Units 08:20 07:17 Sodium 142 141 (137-145) mmol/L Potassium 4.0 3.5 (3.5-5.1) mmol/L Chloride 107 104 (98-107) mmol/L Carbon Dioxide 23 22 (22-30) mmol/L BUN 8 6 L (7-17) mg/dL Creatinine 0.68 0.75 (0.52-1.04) mg/dL Glucose 143 H 97 (74-99) mg/dL Calcium 8.6 8.7 (8.4-10.2) mg/dL Adrenal panel 10/30/17 10/31/17 Range/Units 08:20 07:17 Sodium 142 141 (137-145) mmol/L Potassium 4.0 3.5 (3.5-5.1) mmol/L Chloride 107 104 (98-107) mmol/L Carbon Dioxide 23 22 (22-30) mmol/L BUN 8 6 L (7-17) mg/dL Creatinine 0.68 0.75 (0.52-1.04) mg/dL Glucose 143 H 97 (74-99) mg/dL Calcium 8.6 8.7 (8.4-10.2) mg/dL Assessment and Plan (1) Central line-associated bloodstream infection Current Visit: Yes Status: Acute Code(s): T80.211A - BLOODSTREAM INFECTION DUE TO CENTRAL VENOUS CATHETER, INIT SNOMED Code(s): 557595801 (2) Gram negative sepsis Current Visit: Yes Status: Acute Code(s): A41.50 - GRAM-NEGATIVE SEPSIS, UNSPECIFIED SNOMED Code(s): 691735536 Plan: The PICC line will be removed at bedside and the tip sent for culture
--- NOTE | 2017-10-31 08:49 | P.PCN ---
Date of Procedure: 10/31/17 Preoperative Diagnosis: Infected PICC line Postoperative Diagnosis: Infected PICC line Procedure(s) Performed: Removal of PICC line Anesthesia: other Surgeon: Twyla Kimball Pathology: other (The tip was sent for culture) Condition: stable Description of Procedure: The dressing is removed from the PICC line. The areas prepped with ChloraPrep. The sutures removed. The catheter is removed intact in the distal 2 cm are sent for culture.
[2017-10-31] MEDS: PREGABALIN 100 MG CAP PO SCH ×3 (08:52→20:32)
[2017-10-31 11:59] LABS: Glucose,Whole Blood 144 mg/dL (75-99)
[2017-10-31] MEDS: DESVENLAFAXINE SUCCINATE 50 MG TAB.ER.24H PO SCH (13:01)
[2017-10-31] MEDS: PANTOPRAZOLE 40 MG/10 ML VIAL IVP SCH (16:45)
[2017-10-31 17:23] LABS: Glucose,Whole Blood 150 mg/dL (75-99)
[2017-10-31] MEDS: WARFARIN 2.5 MG TAB PO SCH (18:46)
[2017-10-31 19:00] LABS: Glucose,Whole Blood 152 mg/dL (75-99)
--- NOTE | 2017-10-31 20:22 | PN ---
PROGRESS NOTE DATE OF SERVICE: 10/31/2017 This 37-year-old woman was admitted with possible osteomyelitis and right foot diabetic ulcer, had multiple organisms grown from the blood. Gram-negative bacilli was grown from the blood and persistent Staph aureus was also grown from and Strep agalactiae B with MSSA grown from the wound culture also. The PICC line has been removed at this time. The patient is started on IV Zosyn, monitored closely. PAST MEDICAL HISTORY: Reviewed. REVIEW OF SYSTEMS: CARDIOVASCULAR: No angina or palpitations. RESPIRATORY: No cough, hemoptysis. GI: No nausea, vomiting. : No dysuria. NERVOUS: No numbness or weakness. CURRENT MEDICATIONS: Reviewed, include: 1. Tylenol 650 every 6 hours. 2. Xanax 1 mg t.i.d. 3. Abilify 5 mg p.o. daily. 4. Aspirin 81 mg. 5. Flexeril 10 mg p.o. t.i.d. 6. Pristiq ER 100 mg p.o. 7. Neurontin 600 mg p.o. t.i.d. 8. Dilaudid 2 mg p.o. q.4h p.r.n. 9. Motrin 400 mg every 6 hours p.r.n. 10.NovoLog a.c. and at bedtime. 11.Levemir 10 mg q.h.s. 12.Lopressor 12.5 mg p.o. daily. 13.Protonix. 14.Zosyn 3.375 IV q.8h. 15.Lyrica. 16.Ultram 100 mg every 6 hours p.r.n. 17.Coumadin 12.5 mg and 10 mg. PHYSICAL EXAM: Patient is alert, oriented x3. Pulse is 91, blood pressure 120/60, respirations 18, temperature 98.9, T-max is 101.5, pulse ox 98% on room air. HEENT: Conjunctivae normal. Oral mucosa moist. NECK: No jugular venous distention. No carotid bruits. No lymph node enlargement. CARDIOVASCULAR: S1, S2 muffled. RESPIRATORY: Breath sounds diminished in the bases. No rhonchi. No crackles. ABDOMEN: Soft, nontender. No mass palpable. RIGHT LEG: Diabetic foot and multiple amputations also present. NERVOUS SYSTEM: No focal deficits. Peripheral neuropathy present. The right central line has been removed. LABS: WBC 9, hemoglobin is 8.2. INR 3.2. Accu-Cheks noted. ASSESSMENT: 1. Right foot ulcer, possible osteomyelitis with methicillin-sensitive Staphylococcus aureus and Streptococcus agalactiae a group B. 2. Gram-negative bacilli from the blood with possible sepsis related to central line. 3. Diabetes mellitus type 2, uncontrolled. Hemoglobin A1c is pending. 4. Right central line for IV access for total parenteral nutrition. 5. History of multiple amputations. 6. Hypertension. 7. 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 8. Hypertension. 9. Seizure disorder. 10.Coumadin monitoring. 11.History of methicillin-resistant Staphylococcus aureus. RECOMMENDATIONS AND DISCUSSION: Recommend to continue current medical management and continue symptomatic treatment. Continue the broad-spectrum IV antibiotics. I would also recommend awaiting final reports of the gram-negative bacilli identification. Otherwise, central line has been removed, the central line tip line cut. The culture report has been requested. I would recommend a set of blood cultures today. Otherwise, will hold the Coumadin today. Closely follow with Infectious Disease. Guarded prognosis because of multiple complex medical issues. Further recommendations to follow. MMODL / IJN: [id number] /
[2017-10-31 20:58] LABS: Glucose,Whole Blood 141 mg/dL (75-99)
[2017-10-31] MEDS: INSULIN DETEMIR 100 UNIT/ML 10 ML VIAL SQ SCH (21:43)
[2017-11-01] MEDS: PIPERACILLIN-TAZOBACTAM 3.375 GM in DEXTROSE/WATER 1 50ML.BAG IVPB SCH ×3 (00:17→16:03)
[2017-11-01] MEDS: traMADol 50 MG TAB PO PRN ×4 (00:17→17:34)
[2017-11-01] MEDS: SODIUM CHLORIDE 0.9% 1,000 ML IV SCH ×3 (02:00→14:01)
[2017-11-01] MEDS: HYDROmorphone 2 MG TAB PO PRN ×4 (03:14→21:59)
[2017-11-01 07:36] LABS: Glucose,Whole Blood 115 mg/dL (75-99)
[2017-11-01] MEDS: INSULIN ASPART 100 UNIT/ML 1 ML 10 ML VIAL SQ SCH ×4 (07:55→22:14)
--- NOTE | 2017-11-01 08:00 | P.PN ---
Subjective Progress Note Date: 10/31/17 Principal diagnosis: Fever This is a 37-year-old female patient who has history of previous amputations of the left 5 toes and toes one through 3 on the right foot secondary to osteomyelitis. Her last surgery was in July 2017. 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 Patient has underlying diabetes and she states her last hemoglobin A1c was 7 improved from 13 of last summer. Patient states that on the bottom of her right foot is started out as a blood blister that popped open and started draining a significant amount of blood. She has been following with a surgeon, Dr. Salas, in [place] and last saw him 2 days ago. She was also seen in the emergency center at [place] on October 18 and a culture was obtained. Her has been packing the wound with iodoform gauze. She developed increased pain to the ankle and foot with a throbbing type pain, fever, chills, increased weakness and went to [facility]. A right foot x-ray showed a displaced pathologic fracture in the base of the first metatarsal and concern for osteomyelitis with increased soft tissue swelling as well. Patient was given Zosyn. Her white count was 18.8 and INR 2.17. Urinalysis was negative for urinary tract infection. Lactic acid 1.8. Patient was then transferred to [facility] emergency center for further evaluation and was directly admitted. Patient states she still has fevers with temperature max of 102.2. Patient is maintained on Zosyn. Wound and blood cultures are ordered. Patient quit smoking in August 2017. 10/30/2017 patient has evidence of some residual fever 101.2 in the last day. Trending to improvement. There is evidence of multiple positive blood cultures. 10/31/2017 fever is starting to improve, has been seen by the surgeon and the intravenous access has been removed. The patient is up and about feeling slightly better. Does have ongoing difficulties with her plaque psoriasis Objective - Vital Signs Vital signs: Vital Signs Temp 98.3 F 11/01/17 06:41 Pulse 87 11/01/17 06:41 Resp 16 11/01/17 06:41 BP 112/68 11/01/17 06:41 Pulse Ox 94 L 11/01/17 06:41 Intake & Output 10/31/17 11/01/17 11/01/17 18:59 06:59 18:59 Intake Total 1050 Balance 1050 Intake: Intake, IV Titration 1050 Amount Piperacillin-Tazobactam 3 50 .375 gm In Dextrose/Water 1 50ml.bag @ 12.5 mls/hr IVPB Q8HR [facility] Rx#: [id number] Sodium Chloride 0.9% 1, 1000 000 ml @ 125 mls/hr IV . Q8H [facility] Rx#:[id number] Other: Voiding Method Bedside Commode # Voids 2 # Bowel Movements 2 - Exam Gen: This is a 37-year-old female. She is sitting up in bed and appears to be comfortable and in no acute distress. HEENT: Head is atraumatic, normocephalic. Pupils equal, round. Sclerae is anicteric. Conjunctiva pink. Mucous members of the mouth are moist. Dentition is in poor order. No thrush noted. NECK: Supple. No JVD. No lymphadenopathy. No thyromegaly. LUNGS: Clear to auscultation. No wheezes or rhonchi. No intercostal retractions. HEART: Regular rate and rhythm. No murmur. ABDOMEN: Soft. Bowel sounds are present. No masses. No tenderness. EXTREMITIES: Left foot has noted amputation of all 5 toes. Dorsalis pedis is weak. The right foot has evidence of the chronic ulceration plantar. It is responding well to current local wound care. This evidence of the plaques psoriasis especially of her left arm. NEUROLOGICAL: Patient is awake, alert and oriented x3. - Labs CBC & Chem 7: 10/31/17 07:17 10/31/17 07:17 Labs: Abnormal Lab Results - Last 24 Hours (Table) 10/31/17 10/31/17 10/31/17 Range/Units 07:17 07:17 07:17 Hgb 8.2 L (11.4-16.0) gm/dL Hct 28.8 L (34.0-46.0) % MCV 72.4 L (80.0-100.0) fL MCH 20.5 L (25.0-35.0) pg MCHC 28.4 L (31.0-37.0) g/dL RDW 17.0 H (11.5-15.5) % PT 28.3 H (9.0-12.0) sec INR 3.2 H (<1.2) BUN 6 L (7-17) mg/dL POC Glucose (mg/dL) (75-99) mg/dL 10/31/17 10/31/17 10/31/17 Range/Units 11:57 17:22 18:25 Hgb (11.4-16.0) gm/dL Hct (34.0-46.0) % MCV (80.0-100.0) fL MCH (25.0-35.0) pg MCHC (31.0-37.0) g/dL RDW (11.5-15.5) % PT (9.0-12.0) sec INR (<1.2) BUN (7-17) mg/dL POC Glucose (mg/dL) 144 H 150 H 152 H (75-99) mg/dL 10/31/17 11/01/17 Range/Units 20:43 07:08 Hgb (11.4-16.0) gm/dL Hct (34.0-46.0) % MCV (80.0-100.0) fL MCH (25.0-35.0) pg MCHC (31.0-37.0) g/dL RDW (11.5-15.5) % PT (9.0-12.0) sec INR (<1.2) BUN (7-17) mg/dL POC Glucose (mg/dL) 141 H 115 H (75-99) mg/dL Microbiology - Last 24 Hours (Table) 10/31/17 09:00 Catheter Tip Culture - Preliminary Picc Line 10/29/17 00:45 Gram Stain - Final Foot - Right Wound Culture - Final Staphylococcus aureus Strep agalactiae - (group b) 10/30/17 01:05 Gram Stain - Preliminary Catheter Site Wound Culture - Preliminary Presumptive Staph aureus Laboratory Results WBC 9.9 k/uL (3.8-10.6) 10/31/17 07:17 RBC 3.98 m/uL (3.80-5.40) 10/31/17 07:17 Hgb 8.2 gm/dL (11.4-16.0) L 10/31/17 07:17 Hct 28.8 % (34.0-46.0) L 10/31/17 07:17 MCV 72.4 fL (80.0-100.0) L 10/31/17 07:17 MCH 20.5 pg (25.0-35.0) L 10/31/17 07:17 MCHC 28.4 g/dL (31.0-37.0) L 10/31/17 07:17 RDW 17.0 % (11.5-15.5) H 10/31/17 07:17 Plt Count 348 k/uL (150-450) 10/31/17 07:17 Neutrophils % 58 % 10/31/17 07:17 Lymphocytes % 30 % 10/31/17 07:17 Monocytes % 7 % 10/31/17 07:17 Eosinophils % 2 % 10/31/17 07:17 Basophils % 0 % 10/31/17 07:17 Neutrophils # 5.7 k/uL (1.3-7.7) 10/31/17 07:17 Lymphocytes # 2.9 k/uL (1.0-4.8) 10/31/17 07:17 Monocytes # 0.7 k/uL (0-1.0) 10/31/17 07:17 Eosinophils # 0.2 k/uL (0-0.7) 10/31/17 07:17 Basophils # 0.0 k/uL (0-0.2) 10/31/17 07:17 Hypochromasia Marked 10/31/17 07:17 Anisocytosis Slight 10/31/17 07:17 Microcytosis Moderate 10/31/17 07:17 PT 28.3 sec (9.0-12.0) H 10/31/17 07:17 INR 3.2 (<1.2) H 10/31/17 07:17 Sodium 141 mmol/L (137-145) 10/31/17 07:17 Potassium 3.5 mmol/L (3.5-5.1) 10/31/17 07:17 Chloride 104 mmol/L (98-107) 10/31/17 07:17 Carbon Dioxide 22 mmol/L (22-30) 10/31/17 07:17 Anion Gap 15 mmol/L 10/31/17 07:17 BUN 6 mg/dL (7-17) L 10/31/17 07:17 Creatinine 0.75 mg/dL (0.52-1.04) 10/31/17 07:17 Est GFR (MDRD) Af Amer >60 (>60 ml/min/1.73 sqM) 10/31/17 07:17 Est GFR (MDRD) Non-Af >60 (>60 ml/min/1.73 sqM) 10/31/17 07:17 Glucose 97 mg/dL (74-99) 10/31/17 07:17 POC Glucose (mg/dL) 115 mg/dL (75-99) H 11/01/17 07:08 POC Glu Electron Beam Welder ID [place] Friend 11/01/17 07:[address] Glu mg/dL 131 10/29/17 08:03 Hemoglobin A1c 6.2 % (4.0-6.0) H 10/29/17 08:03 Plasma Lactic Acid [place] 1.1 mmol/L (0.7-2.0) 10/29/17 09:13 Calcium 8.7 mg/dL (8.4-10.2) 10/31/17 07:17 Phosphorus 3.3 mg/dL (2.5-4.5) 10/29/17 08:03 Magnesium 1.6 mg/dL (1.6-2.3) 10/29/17 08:03 Microbiology 10/31/17 09:00 Picc Line Catheter Tip Culture - Preliminary 10/29/17 00:45 Foot - Right Gram Stain - Final 10/29/17 00:45 Foot - Right Wound Culture - Final Staphylococcus aureus Strep agalactiae - (group b) 10/30/17 01:05 Catheter Site Gram Stain - Preliminary 10/30/17 01:05 Catheter Site Wound Culture - Preliminary Presumptive Staph aureus 10/29/17 09:25 Blood Blood Culture Gram Stain - Preliminary 10/29/17 09:25 Blood Blood Culture - Preliminary Gram Neg Bacilli 10/29/17 09:13 Blood Blood Culture Gram Stain - Preliminary 10/29/17 09:13 Blood Blood Culture - Preliminary Gram Neg Bacilli 10/29/17 09:25 Blood Blood Culture - Final 10/29/17 09:13 Blood Blood Culture - Final Assessment and Plan (1) Uncontrolled diabetes mellitus Current Visit: Yes Status: Acute Code(s): E11.65 - TYPE 2 DIABETES MELLITUS WITH HYPERGLYCEMIA SNOMED Code(s): 228842937 (2) Gram negative sepsis Narrative/Plan: This 37-year-old female has a very extensive past medical 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 She has diabetes and has had difficulties with peripheral vascular disease has had a transmetatarsal amputation to her left foot and amputation of great first and fifth toe of the right foot. Now is evidence of the plantar ulceration to the right foot for which [employer] silver will be applied. The patient's imaging study reveals evidence of significant abnormality to the feet, the intensity of the uptake in the bone scan does bring up the possibility of underlying fracture but osteomy this cannot be directly excluded. The patient does not have significant renal failure and may be a candidate for further imaging specifically MRI to delineate the underlying disease process to the foot. Wound culture is pending in current antibiotic therapy is appropriate. The patient's Jesus site appears to have some scant drainage. However is nontender. She's due for dressing changes will occur in a culture obtained of the drainage to further help direct her course of therapy. Concern would be since she is on TPN and temperature 102 to the possibility of infection to this catheter site has been in place since last April. TPN is on hold until there is evidence of negative blood cultures. If underlying bony infection is found to be prudent to determine if there is any outpatient data relating to this, this may help with considerations for outpatient hyperbaric oxygen therapy which may be needed for foot salvage. Leukocytosis is recommended a current underlying infection which is to the foot with ulceration and possible bloodstream infection from her Jesus catheter. On 10/30/2017 the patient continues to have fever. The no evidence of multiple blood cultures growing gram-negative bacilli. With this the patient's TPN catheter which is a Jesus catheter needs to be removed as it is now the most likely source of her sepsis. It is currently not being utilized for TPN. TPN is on hold until her sepsis further improves. At the time of the call with the gram-negative bacilli in the blood , Zosyn therapy continues. Surgical consult for removal of her Jesus catheter has been made. Follow blood cultures requested in the morning. Continue local wound care to the foot ulcer which is not likely the source of her current sepsis. 10/31/2017 patient is now showing some slight improvement since her IV access has been removed. Doing well with local wound care to the chronic foot ulcer. She is able to ingest some food however has a poor absorption rate. When she has completely cleared her infection she will need intravenous IV access reestablished. This will be needed for her TPN as well as a course of outpatient intravenous antibiotic therapy, given her short gut syndrome would not be able to effectively trust oral antibiotic therapy. Current Visit: Yes Status: Acute Code(s): A41.50 - GRAM-NEGATIVE SEPSIS, UNSPECIFIED SNOMED Code(s): 550616079 (3) Infection due to Jesus catheter Current Visit: Yes Status: Acute Code(s): T80.219A - UNSP INFECTION DUE TO CENTRAL VENOUS CATHETER, INIT ENCNTR SNOMED Code(s): 144174437 (4) Diabetic ulcer of right foot with fat layer exposed Current Visit: Yes Status: Acute Code(s): E11.621 - TYPE 2 DIABETES MELLITUS WITH FOOT ULCER; L97.512 - NON-PRS CHRONIC ULCER OTH PRT RIGHT FOOT W FAT LAYER EXPOSED SNOMED Code(s): 743844856
[2017-11-01] MEDS: ALPRAZolam 0.5 MG TAB PO SCH ×3 (08:18→22:15)
[2017-11-01] MEDS: PREGABALIN 100 MG CAP PO SCH ×3 (08:18→22:15)
[2017-11-01] MEDS: GABAPENTIN 300 MG CAP PO SCH ×3 (08:18→22:14)
[2017-11-01] MEDS: ARIPiprazole 5 MG TAB PO SCH (08:18)
[2017-11-01] MEDS: CYCLOBENZAPRINE 10 MG TAB PO SCH ×3 (08:19→22:15)
[2017-11-01] MEDS: METOPROLOL TARTRATE 12.5 MG TAB PO SCH ×2 (08:19→22:14)
[2017-11-01] MEDS: PANTOPRAZOLE 40 MG TABLET PO SCH (08:19)
[2017-11-01] MEDS: ASPIRIN 81 MG PO SCH (08:19)
[2017-11-01 08:29] LABS: Anisocytosis Slight; Basophils % (A) 0 %; Eosinophils # (A) 0.2 k/uL (0-0.7); Eosinophils % (A) 2 %; HGB 7.7 gm/dL (11.4-16.0); Hypochromasia Marked; Lymphocytes # (A) 2.1 k/uL (1.0-4.8); Lymphocytes % (A) 28 %; MCH 20.5 pg (25.0-35.0); MCHC 27.5 g/dL (31.0-37.0); MCV 74.5 fL (80.0-100.0); Microcytosis Moderate; Monocytes # (A) 0.5 k/uL (0-1.0); Monocytes % (A) 7 %; Neutrophils # (A) 4.5 k/uL (1.3-7.7); Neutrophils % (A) 60 %; Platelet Count 319 k/uL (150-450); RBC 3.76 m/uL (3.80-5.40); RDW 17.5 % (11.5-15.5); WBC 7.5 k/uL (3.8-10.6)
[2017-11-01 08:33] LABS: INR 2.6 (<1.2); Prothrombin Time 23.5 sec (9.0-12.0)
[2017-11-01 08:47] LABS: Anion Gap 15 mmol/L; Blood Urea Nitrogen 8 mg/dL (7-17); Carbon Dioxide 20 mmol/L (22-30); Chloride 106 mmol/L (98-107); Glucose 103 mg/dL (74-99); Potassium 3.9 mmol/L (3.5-5.1); Sodium 141 mmol/L (137-145)
--- NOTE | 2017-11-01 09:42 | P.PN ---
Progress Note - Text Progress Note Date: 11/01/17 The PICC line was removed yesterday without complication. The tip was sent for culture. As soon as she is cleared from Dr. Hills standpoint, she should have a PICC line placed for TPN. She can then follow up with me in the office to arrange a Jesus catheter placement.
[2017-11-01] MEDS: DESVENLAFAXINE SUCCINATE 50 MG TAB.ER.24H PO SCH (11:00)
[2017-11-01 12:15] LABS: Glucose,Whole Blood 140 mg/dL (75-99)
--- NOTE | 2017-11-01 15:21 | PN ---
PROGRESS NOTE DATE OF SERVICE: 11/01/2017 This 37-year-old woman was admitted with sepsis and also osteomyelitis also was noted to have a possibly catheter tip infection. Final culture pending at this time. Blood culture grew gram negative bacilli and MSSA and Group B strep agalactiae in the wound culture. No chest pain. No palpitations. No fever. PHYSICAL EXAM: Alert and oriented times three. Pulse is 87, blood pressure 130/60, respiration 18 temperature 98.2, pulse ox 94% on room air. T-max 100 degrees. HEENT: Conjunctivae normal. Oral mucosa moist. Neck is no jugular venous distention. No carotid bruit. No lymph node enlargement. Cardiovascular System: S1, S2 muffled. Respirations: Breath sounds diminished in the bases. No rhonchi and no crackles. ABDOMEN: Soft, nontender. No mass palpable. Legs no edema and no swelling. NERVOUS SYSTEM: Higher functions as mentioned earlier, moves all 4 limbs. No focal deficits. Lymphatics: No lymph nodes palpable in the neck, axillae or groin. SKIN: No rashes. No ulcer rash or bleeding. LABS: WBC 7.2, hemoglobin 7.7, and INR 2.6. ASSESSMENT: 1. Right foot ulcer, possible osteomyelitis with MSSA and as well as Streptococcus agalactiae group B. 2. Gram-negative bacilli from the blood with sepsis, possibly related to central line. 3. Diabetes mellitus Type 2. 4. Right central line for IV access for TPN. 5. History of multiple amputations of the toes. 6. Hypertension. 7. 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 8. Hypertension. 9. Seizure disorder. 10.Coumadin monitoring. 11.History of MRSA. RECOMMENDATIONS AND DISCUSSION: Recommend to continue current management and symptomatic treatment. Await the final report of the organisms. Otherwise continue the broad-spectrum IV antibiotics. Closely follow with Infectious Disease. Further recommendations to follow. MMODL / IJN: [id number] /
[2017-11-01 17:09] LABS: Glucose,Whole Blood 120 mg/dL (75-99)
--- NOTE | 2017-11-01 17:30 | P.PN ---
Subjective Progress Note Date: 11/01/17 Principal diagnosis: Fever This is a 37-year-old female patient who has history of previous amputations of the left 5 toes and toes one through 3 on the right foot secondary to osteomyelitis. Her last surgery was in July 2017. 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 Patient has underlying diabetes and she states her last hemoglobin A1c was 7 improved from 13 of last summer. Patient states that on the bottom of her right foot is started out as a blood blister that popped open and started draining a significant amount of blood. She has been following with a surgeon, Dr. Salas, in [place] and last saw him 2 days ago. She was also seen in the emergency center at [place] on October 18 and a culture was obtained. Her has been packing the wound with iodoform gauze. She developed increased pain to the ankle and foot with a throbbing type pain, fever, chills, increased weakness and went to [facility]. A right foot x-ray showed a displaced pathologic fracture in the base of the first metatarsal and concern for osteomyelitis with increased soft tissue swelling as well. Patient was given Zosyn. Her white count was 18.8 and INR 2.17. Urinalysis was negative for urinary tract infection. Lactic acid 1.8. Patient was then transferred to [facility] emergency center for further evaluation and was directly admitted. Patient states she still has fevers with temperature max of 102.2. Patient is maintained on Zosyn. Wound and blood cultures are ordered. Patient quit smoking in August 2017. 10/30/2017 patient has evidence of some residual fever 101.2 in the last day. Trending to improvement. There is evidence of multiple positive blood cultures. 10/31/2017 fever is starting to improve, has been seen by the surgeon and the intravenous access has been removed. The patient is up and about feeling slightly better. Does have ongoing difficulties with her plaque psoriasis October 27 fever is resolved. She is feeling better since the catheter has been removed. She is inquiring as to any harm from not being on TPN. Objective - Vital Signs Vital signs: Vital Signs Temp 100.7 F H 02/25/18 15:00 Pulse 87 11/01/17 15:00 Resp 20 11/01/17 15:00 BP 119/66 11/01/17 15:00 Pulse Ox 97 11/01/17 15:00 Intake & Output 10/31/17 11/01/17 11/01/17 18:59 06:59 18:59 Intake Total 1050 320 Balance 1050 320 Intake: Intake, IV Titration 1050 Amount Piperacillin-Tazobactam 3 50 .375 gm In Dextrose/Water 1 50ml.bag @ 12.5 mls/hr IVPB Q8HR [facility] Rx#: [id number] Sodium Chloride 0.9% 1, 1000 000 ml @ 125 mls/hr IV . Q8H [facility] Rx#:[id number] Oral 320 Other: Voiding Method Bedside Commode # Voids 2 3 # Bowel Movements 2 - Exam Gen: This is a 37-year-old female. She is sitting up in bed and appears to be comfortable and in no acute distress. HEENT: Head is atraumatic, normocephalic. Pupils equal, round. Sclerae is anicteric. Conjunctiva pink. Mucous members of the mouth are moist. Dentition is in poor order. No thrush noted. NECK: Supple. No JVD. No lymphadenopathy. No thyromegaly. LUNGS: Clear to auscultation. No wheezes or rhonchi. No intercostal retractions. HEART: Regular rate and rhythm. No murmur. ABDOMEN: Soft. Bowel sounds are present. No masses. No tenderness. EXTREMITIES: Left foot has noted amputation of all 5 toes. Dorsalis pedis is weak. The right foot has evidence of the chronic ulceration plantar. It is responding well to current local wound care. This evidence of the plaques psoriasis especially of her left arm. NEUROLOGICAL: Patient is awake, alert and oriented x3. - Labs CBC & Chem 7: 11/01/17 07:38 11/01/17 07:38 Labs: Abnormal Lab Results - Last 24 Hours (Table) 10/31/17 10/31/17 11/01/17 Range/Units 18:25 20:43 07:08 RBC (3.80-5.40) m/uL Hgb (11.4-16.0) gm/dL Hct (34.0-46.0) % MCV (80.0-100.0) fL MCH (25.0-35.0) pg MCHC (31.0-37.0) g/dL RDW (11.5-15.5) % PT (9.0-12.0) sec INR (<1.2) Carbon Dioxide (22-30) mmol/L Glucose (74-99) mg/dL POC Glucose (mg/dL) 152 H 141 H 115 H (75-99) mg/dL 11/01/17 11/01/17 11/01/17 Range/Units 07:38 07:38 07:38 RBC 3.76 L (3.80-5.40) m/uL Hgb 7.7 L (11.4-16.0) gm/dL Hct 28.0 L (34.0-46.0) % MCV 74.5 L (80.0-100.0) fL MCH 20.5 L (25.0-35.0) pg MCHC 27.5 L (31.0-37.0) g/dL RDW 17.5 H (11.5-15.5) % PT 23.5 H (9.0-12.0) sec INR 2.6 H (<1.2) Carbon Dioxide 20 L (22-30) mmol/L Glucose 103 H (74-99) mg/dL POC Glucose (mg/dL) (75-99) mg/dL 11/01/17 11/01/17 Range/Units 12:11 17:08 RBC (3.80-5.40) m/uL Hgb (11.4-16.0) gm/dL Hct (34.0-46.0) % MCV (80.0-100.0) fL MCH (25.0-35.0) pg MCHC (31.0-37.0) g/dL RDW (11.5-15.5) % PT (9.0-12.0) sec INR (<1.2) Carbon Dioxide (22-30) mmol/L Glucose (74-99) mg/dL POC Glucose (mg/dL) 140 H 120 H (75-99) mg/dL Microbiology - Last 24 Hours (Table) 10/31/17 09:00 Catheter Tip Culture - Preliminary Picc Line 10/29/17 00:45 Gram Stain - Final Foot - Right Wound Culture - Final Staphylococcus aureus Strep agalactiae - (group b) Laboratory Results WBC 7.5 k/uL (3.8-10.6) 11/01/17 07:38 RBC 3.76 m/uL (3.80-5.40) L 11/01/17 07:38 Hgb 7.7 gm/dL (11.4-16.0) L 11/01/17 07:38 Hct 28.0 % (34.0-46.0) L 11/01/17 07:38 MCV 74.5 fL (80.0-100.0) L 11/01/17 07:38 MCH 20.5 pg (25.0-35.0) L 11/01/17 07:38 MCHC 27.5 g/dL (31.0-37.0) L 11/01/17 07:38 RDW 17.5 % (11.5-15.5) H 11/01/17 07:38 Plt Count 319 k/uL (150-450) 11/01/17 07:38 Neutrophils % 60 % 11/01/17 07:38 Lymphocytes % 28 % 11/01/17 07:38 Monocytes % 7 % 11/01/17 07:38 Eosinophils % 2 % 11/01/17 07:38 Basophils % 0 % 11/01/17 07:38 Neutrophils # 4.5 k/uL (1.3-7.7) 11/01/17 07:38 Lymphocytes # 2.1 k/uL (1.0-4.8) 11/01/17 07:38 Monocytes # 0.5 k/uL (0-1.0) 11/01/17 07:38 Eosinophils # 0.2 k/uL (0-0.7) 11/01/17 07:38 Basophils # 0.0 k/uL (0-0.2) 11/01/17 07:38 Hypochromasia Marked 11/01/17 07:38 Anisocytosis Slight 11/01/17 07:38 Microcytosis Moderate 11/01/17 07:38 PT 23.5 sec (9.0-12.0) H 11/01/17 07:38 INR 2.6 (<1.2) H 11/01/17 07:38 Sodium 141 mmol/L (137-145) 11/01/17 07:38 Potassium 3.9 mmol/L (3.5-5.1) 11/01/17 07:38 Chloride 106 mmol/L (98-107) 11/01/17 07:38 Carbon Dioxide 20 mmol/L (22-30) L 11/01/17 07:38 Anion Gap 15 mmol/L 11/01/17 07:38 BUN 8 mg/dL (7-17) 11/01/17 07:38 Creatinine 0.76 mg/dL (0.52-1.04) 11/01/17 07:38 Est GFR (MDRD) Af Amer >60 (>60 ml/min/1.73 sqM) 11/01/17 07:38 Est GFR (MDRD) Non-Af >60 (>60 ml/min/1.73 sqM) 11/01/17 07:38 Glucose 103 mg/dL (74-99) H 11/01/17 07:38 POC Glucose (mg/dL) 120 mg/dL (75-99) H 11/01/17 17:08 POC Glu Price Analyst ID Joan Multani 11/01/17 17:[address] Glu mg/dL 131 10/29/17 08:03 Hemoglobin A1c 6.2 % (4.0-6.0) H 10/29/17 08:03 Plasma Lactic Acid Jameson 1.1 mmol/L (0.7-2.0) 10/29/17 09:13 Calcium 9.0 mg/dL (8.4-10.2) 11/01/17 07:38 Phosphorus 3.3 mg/dL (2.5-4.5) 10/29/17 08:03 Magnesium 1.6 mg/dL (1.6-2.3) 10/29/17 08:03 Microbiology 10/31/17 09:00 Picc Line Catheter Tip Culture - Preliminary 10/29/17 00:45 Foot - Right Gram Stain - Final 10/29/17 00:45 Foot - Right Wound Culture - Final Staphylococcus aureus Strep agalactiae - (group b) 10/30/17 01:05 Catheter Site Gram Stain - Preliminary 10/30/17 01:05 Catheter Site Wound Culture - Preliminary Presumptive Staph aureus 10/29/17 09:25 Blood Blood Culture Gram Stain - Preliminary 10/29/17 09:25 Blood Blood Culture - Preliminary Gram Neg Bacilli 10/29/17 09:13 Blood Blood Culture Gram Stain - Preliminary 10/29/17 09:13 Blood Blood Culture - Preliminary Gram Neg Bacilli 10/29/17 09:25 Blood Blood Culture - Final 10/29/17 09:13 Blood Blood Culture - Final Assessment and Plan (1) Uncontrolled diabetes mellitus Current Visit: Yes Status: Acute Code(s): E11.65 - TYPE 2 DIABETES MELLITUS WITH HYPERGLYCEMIA SNOMED Code(s): 464847835 (2) Gram negative sepsis Narrative/Plan: This 37-year-old female has a very extensive past medical 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 She has diabetes and has had difficulties with peripheral vascular disease has had a transmetatarsal amputation to her left foot and amputation of great first and fifth toe of the right foot. Now is evidence of the plantar ulceration to the right foot for which Optic[employer] silver will be applied. The patient's imaging study reveals evidence of significant abnormality to the feet, the intensity of the uptake in the bone scan does bring up the possibility of underlying fracture but osteomy this cannot be directly excluded. The patient does not have significant renal failure and may be a candidate for further imaging specifically MRI to delineate the underlying disease process to the foot. Wound culture is pending in current antibiotic therapy is appropriate. The patient's Jesus site appears to have some scant drainage. However is nontender. She's due for dressing changes will occur in a culture obtained of the drainage to further help direct her course of therapy. Concern would be since she is on TPN and temperature 102 to the possibility of infection to this catheter site has been in place since last April. TPN is on hold until there is evidence of negative blood cultures. If underlying bony infection is found to be prudent to determine if there is any outpatient data relating to this, this may help with considerations for outpatient hyperbaric oxygen therapy which may be needed for foot salvage. Leukocytosis is recommended a current underlying infection which is to the foot with ulceration and possible bloodstream infection from her Jesus catheter. On 10/30/2017 the patient continues to have fever. The no evidence of multiple blood cultures growing gram-negative bacilli. With this the patient's TPN catheter which is a Jesus catheter needs to be removed as it is now the most likely source of her sepsis. It is currently not being utilized for TPN. TPN is on hold until her sepsis further improves. At the time of the call with the gram-negative bacilli in the blood , Zosyn therapy continues. Surgical consult for removal of her Jesus catheter has been made. Follow blood cultures requested in the morning. Continue local wound care to the foot ulcer which is not likely the source of her current sepsis. 10/31/2017 patient is now showing some slight improvement since her IV access has been removed. Doing well with local wound care to the chronic foot ulcer. She is able to ingest some food however has a poor absorption rate. When she has completely cleared her infection she will need intravenous IV access reestablished. This will be needed for her TPN as well as a course of outpatient intravenous antibiotic therapy, given her short gut syndrome would not be able to effectively trust oral antibiotic therapy. 11/01/2017 or used or used Gram-negative bacilli from the blood is still being evaluated at the microbiology lab, we do await the final data for development of an outpatient plan. Also waiting for a negative blood culture so the PICC line may be placed so that she may resume her TPN. PICC line will also be utilized for outpatient edginess antibiotic therapy will be needed for treatment of the recent sepsis gram-negative in nature. Does have evidence of the wound also with some staph that is not MRSA. Continue the current local wound care which has been helpful. Current Visit: Yes Status: Acute Code(s): A41.50 - GRAM-NEGATIVE SEPSIS, UNSPECIFIED SNOMED Code(s): 579776397 (3) Infection due to Jesus catheter Current Visit: Yes Status: Acute Code(s): T80.219A - UNSP INFECTION DUE TO CENTRAL VENOUS CATHETER, INIT ENCNTR SNOMED Code(s): 105815042 (4) Diabetic ulcer of right foot with fat layer exposed Current Visit: Yes Status: Acute Code(s): E11.621 - TYPE 2 DIABETES MELLITUS WITH FOOT ULCER; L97.512 - NON-PRS CHRONIC ULCER OTH PRT RIGHT FOOT W FAT LAYER EXPOSED SNOMED Code(s): 895227800
[2017-11-01] MEDS: WARFARIN 2.5 MG TAB PO SCH (18:30)
[2017-11-01 20:56] LABS: Glucose,Whole Blood 146 mg/dL (75-99)
[2017-11-01] MEDS: INSULIN DETEMIR 100 UNIT/ML 10 ML VIAL SQ SCH (22:14)
[2017-11-02] MEDS: PIPERACILLIN-TAZOBACTAM 3.375 GM in DEXTROSE/WATER 1 50ML.BAG IVPB SCH ×4 (00:15→23:01)
[2017-11-02] MEDS: SODIUM CHLORIDE 0.9% 1,000 ML IV SCH ×2 (00:20→08:12)
[2017-11-02] MEDS: HYDROmorphone 2 MG TAB PO PRN ×3 (02:50→15:36)
[2017-11-02] MEDS: traMADol 50 MG TAB PO PRN (06:11)
[2017-11-02 07:08] LABS: Glucose,Whole Blood 143 mg/dL (75-99)
[2017-11-02] MEDS: ARIPiprazole 5 MG TAB PO SCH (08:10)
[2017-11-02] MEDS: METOPROLOL TARTRATE 12.5 MG TAB PO SCH ×2 (08:10→22:10)
[2017-11-02] MEDS: CYCLOBENZAPRINE 10 MG TAB PO SCH ×3 (08:10→22:10)
[2017-11-02] MEDS: ASPIRIN 81 MG PO SCH (08:10)
[2017-11-02] MEDS: ALPRAZolam 0.5 MG TAB PO SCH ×3 (08:10→22:10)
[2017-11-02] MEDS: GABAPENTIN 300 MG CAP PO SCH ×3 (08:10→22:10)
[2017-11-02] MEDS: PANTOPRAZOLE 40 MG TABLET PO SCH (08:10)
[2017-11-02] MEDS: INSULIN ASPART 100 UNIT/ML 1 ML 10 ML VIAL SQ SCH ×4 (08:12→22:03)
[2017-11-02] MEDS: PREGABALIN 100 MG CAP PO SCH ×3 (08:12→22:10)
[2017-11-02 08:56] LABS: Prothrombin Time 26.9 sec (9.0-12.0)
[2017-11-02 09:03] LABS: Anion Gap 12 mmol/L; Blood Urea Nitrogen 4 mg/dL (7-17); Calcium 8.6 mg/dL (8.4-10.2); Carbon Dioxide 22 mmol/L (22-30); Chloride 108 mmol/L (98-107); Glucose 129 mg/dL (74-99); Potassium 3.8 mmol/L (3.5-5.1); Sodium 142 mmol/L (137-145)
[2017-11-02 09:04] LABS: Anisocytosis Slight; Basophils % (A) 0 %; Eosinophils # (A) 0.2 k/uL (0-0.7); Eosinophils % (A) 3 %; HCT 25.4 % (34.0-46.0); HGB 7.1 gm/dL (11.4-16.0); Hypochromasia Marked; Lymphocytes # (A) 2.2 k/uL (1.0-4.8); Lymphocytes % (A) 30 %; MCH 20.6 pg (25.0-35.0); MCV 73.4 fL (80.0-100.0); Mean Platelet Volume 7.1; Microcytosis Moderate; Monocytes # (A) 0.4 k/uL (0-1.0); Monocytes % (A) 6 %; Neutrophils # (A) 4.3 k/uL (1.3-7.7); Neutrophils % (A) 59 %; Platelet Count 298 k/uL (150-450); RBC 3.45 m/uL (3.80-5.40); RDW 16.8 % (11.5-15.5); WBC 7.4 k/uL (3.8-10.6)
[2017-11-02 10:26] VITALS: RESP 16
[2017-11-02] MEDS ORDERED: MORPHINE SULFATE 4 MG/ML SYRINGE IVP PRN (11:22)
[2017-11-02 11:37] LABS: Glucose,Whole Blood 141 mg/dL (75-99)
[2017-11-02] MEDS: IOHEXOL 350 MG/ML 25 ML BOTTLE (ORAL USE) PO PRN ×2 (12:30→13:38)
[2017-11-02] MEDS ORDERED: BENZOCAINE 20% HEMORRHOIDAL OINT 28GM RECTAL PRN (13:45)
[2017-11-02] MEDS: DESVENLAFAXINE SUCCINATE 50 MG TAB.ER.24H PO SCH (14:19)
--- NOTE | 2017-11-02 14:36 | CT ---
EXAMINATION TYPE: CT abdomen pelvis wo con DATE OF EXAM: 11/02/2017 COMPARISON: NONE INDICATION: Generalized pain, history of bowel resection DLP: 568.6 mGycm, Automated exposure control for dose reduction was used. CONTRAST: 0 mL of Omnipaque 350. Study performed with Oral Contrast TECHNIQUE: Axial images were obtained from above the diaphragm to the pubic rami in the axial plane a t 5 mm thick sections. Reconstructed images are reviewed on the computer in the coronal plane. FINDINGS: Limited CT sections are obtained the lung bases. There is scattered infiltrate and consolidation in the posterior right lung base. Correlate for atelectasis or pneumonia.. CT ABDOMEN: Liver: Normal Spleen: Normal Pancreas: Normal Adrenal glands: The adrenal glands are normal. Gallbladder: Normal Kidneys: No masses are evident. Mild bilateral hydronephrosis is evident. There is mild hydroureter p resent bilaterally larger on the right than the left. No obstructing renal or ureteral stones are shashi ntified. No cysts are present. There is a 0.2 cm nonobstructing renal stone in the posterior lateral right kidney midportion. Aorta: Normal Inferior vena cava: Normal. CT PELVIS: There are dilated small bowel loops containing contrast. There is nonspecific small bowel loops which has slight prominence. Contrast extends to the colon. Small bowel appears limited. The colon is dila gino. Multiple air-fluid levels are present within the colon including the level the rectum. Correlate for gastroenteritis. Ileus could be considered. Appendix: Not identified. Urinary bladder: Normal. Genitourinary structures: Uterus appears normal. Postsurgical changes are adjacent to the uterus. The ovaries are not identified. Osseous structures: No suspicious lytic or sclerotic lesions. IMPRESSIONS: 1. Clinical consideration for gastroenteritis versus ileus is recommended. No obstruction is identif ied. Air-fluid levels are within the colon and contrast extends. 2. Postsurgical changes. 3. Mild bilateral hydronephrosis and hydroureter. Obstructing stones are not identified.
[2017-11-02 16:55] LABS: Glucose,Whole Blood 110 mg/dL (75-99)
[2017-11-02] MEDS: WARFARIN 10 MG TAB PO SCH (16:58)
[2017-11-02] MEDS: MORPHINE ORAL SOLN 10 MG/5 ML CUP PO PRN (20:03)
[2017-11-02 20:46] LABS: Glucose,Whole Blood 123 mg/dL (75-99)
[2017-11-02] MEDS: INSULIN DETEMIR 100 UNIT/ML 10 ML VIAL SQ SCH (22:07)
--- NOTE | 2017-11-02 22:10 | PN ---
PROGRESS NOTE DATE OF SERVICE: 11/02/2017. INTERVAL HISTORY: This 37-year-old woman was admitted with right foot ulcer with possible MSSA as well as agalactiae Group B also had grown Acinetobacter lwoffi from the blood. The catheter- tip culture is pending at this time. No chest pain. No palpitations. No fever. CT scan of the abdomen and pelvis was also done which showed gastroenteritis versus ileus otherwise postsurgical mild also noted. There is no history of fever, rigors chills. No history of headache, loss of consciousness, seizures. EXAM: Alert and oriented times three. Blood pressure 120/74, respiration 16, temperature 97.9, pulse ox 100% on room air. HEENT: Conjunctivae normal. Neck: No jugular venous distention. Cardiovascular : S1, S2 muffled. Respiratory: Breath sounds diminished in the bases. No rhonchi. No crackles. Abdomen is soft, nontender. Legs: No edema. No swelling. Right foot osteomyelitis. No edema. No swelling. Central nervous system: No focal deficits. LABS: WBC 7.2, hemoglobin 7.1. INR 3. ASSESSMENT: 1. Right foot ulcer, possibly osteomyelitis MSSA as well as Strep agalactiae Group B. 2. Acinetobacter lwoffi. 3. Sepsis from the blood possibility of central line. 4. Diabetes type 2. 5. Right central line IV access for TPN and removal. 6. History of multiple amputations in toes. 7. Hypertension. 8. History of small-bowel mesenteric infarction as well as surgical resection. 9. Hypertension. 10.History of seizure disorder. 11.Coumadin monitoring. 12.History of MRSA. RECOMMENDATIONS AND DISCUSSION: Continue current medications, continue current management and symptomatic treatment. Otherwise, at this time, I recommend repeat labs. Monitor closely. Otherwise continue the antibiotics. Follow closely with Infectious Disease. Further recommendations to follow. MMODL / IJN: [id number] / ERVIN
--- NOTE | 2017-11-02 23:25 | P.PN ---
Subjective Progress Note Date: 11/02/17 Principal diagnosis: Fever This is a 37-year-old female patient who has history of previous amputations of the left 5 toes and toes one through 3 on the right foot secondary to osteomyelitis. Her last surgery was in July 2017. 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 Patient has underlying diabetes and she states her last hemoglobin A1c was 7 improved from 13 of last summer. Patient states that on the bottom of her right foot is started out as a blood blister that popped open and started draining a significant amount of blood. She has been following with a surgeon, Dr. Salas, in [place] and last saw him 2 days ago. She was also seen in the emergency center at [place] on October 18 and a culture was obtained. Her has been packing the wound with iodoform gauze. She developed increased pain to the ankle and foot with a throbbing type pain, fever, chills, increased weakness and went to [facility]. A right foot x-ray showed a displaced pathologic fracture in the base of the first metatarsal and concern for osteomyelitis with increased soft tissue swelling as well. Patient was given Zosyn. Her white count was 18.8 and INR 2.17. Urinalysis was negative for urinary tract infection. Lactic acid 1.8. Patient was then transferred to [facility] emergency center for further evaluation and was directly admitted. Patient states she still has fevers with temperature max of 102.2. Patient is maintained on Zosyn. Wound and blood cultures are ordered. Patient quit smoking in August 2017. 10/30/2017 patient has evidence of some residual fever 101.2 in the last day. Trending to improvement. There is evidence of multiple positive blood cultures. 10/31/2017 fever is starting to improve, has been seen by the surgeon and the intravenous access has been removed. The patient is up and about feeling slightly better. Does have ongoing difficulties with her plaque psoriasis November 01, 2017 fever is resolved. She is feeling better since the catheter has been removed. She is inquiring as to any harm from not being on TPN. 11/02/2017 reveals the patient feeling better. She remains without significant fever and T-max is 97.5. She is denying other new symptoms other than some fatigue and that she's not been on TPN. She is a bit fatigued because she's had some pain medication today. Her pain control is much better. Objective - Vital Signs Vital signs: Vital Signs Temp 97.9 F 11/02/17 14:52 Pulse 83 11/02/17 22:07 Resp 16 11/02/17 15:59 BP 117/60 11/02/17 22:07 Pulse Ox 100 11/02/17 14:52 Intake & Output 11/02/17 11/02/17 11/03/17 06:59 18:59 06:59 Intake Total 960 Balance 960 Intake: Oral 960 Other: Voiding Method Bedside Commode # Voids 2 4 # Bowel Movements 1 - Exam Gen: This is a 37-year-old female. She is sitting up in bed and appears to be comfortable and in no acute distress. HEENT: Head is atraumatic, normocephalic. Pupils equal, round. Sclerae is anicteric. Conjunctiva pink. Mucous members of the mouth are moist. Dentition is in poor order. No thrush noted. NECK: Supple. No JVD. No lymphadenopathy. No thyromegaly. LUNGS: Clear to auscultation. No wheezes or rhonchi. No intercostal retractions. HEART: Regular rate and rhythm. No murmur. ABDOMEN: Soft. Bowel sounds are present. No masses. No tenderness. EXTREMITIES: Left foot has noted amputation of all 5 toes. Dorsalis pedis is weak. The right foot has evidence of the chronic ulceration plantar. It is responding well to current local wound care. This evidence of the plaques psoriasis especially of her left arm. NEUROLOGICAL: Patient is awake, alert and oriented x3. - Labs CBC & Chem 7: 11/02/17 08:18 11/02/17 08:18 Labs: Abnormal Lab Results - Last 24 Hours (Table) 11/02/17 11/02/17 11/02/17 Range/Units 06:58 08:18 08:18 RBC 3.45 L (3.80-5.40) m/uL Hgb 7.1 L (11.4-16.0) gm/dL Hct 25.4 L (34.0-46.0) % MCV 73.4 L (80.0-100.0) fL MCH 20.6 L (25.0-35.0) pg MCHC 28.0 L (31.0-37.0) g/dL RDW 16.8 H (11.5-15.5) % PT (9.0-12.0) sec INR (<1.2) Chloride 108 H (98-107) mmol/L BUN 4 L (7-17) mg/dL Glucose 129 H (74-99) mg/dL POC Glucose (mg/dL) 143 H (75-99) mg/dL 11/02/17 11/02/17 11/02/17 Range/Units 08:18 11:35 16:53 RBC (3.80-5.40) m/uL Hgb (11.4-16.0) gm/dL Hct (34.0-46.0) % MCV (80.0-100.0) fL MCH (25.0-35.0) pg MCHC (31.0-37.0) g/dL RDW (11.5-15.5) % PT 26.9 H (9.0-12.0) sec INR 3.0 H (<1.2) Chloride (98-107) mmol/L BUN (7-17) mg/dL Glucose (74-99) mg/dL POC Glucose (mg/dL) 141 H 110 H (75-99) mg/dL 11/02/17 Range/Units 20:43 RBC (3.80-5.40) m/uL Hgb (11.4-16.0) gm/dL Hct (34.0-46.0) % MCV (80.0-100.0) fL MCH (25.0-35.0) pg MCHC (31.0-37.0) g/dL RDW (11.5-15.5) % PT (9.0-12.0) sec INR (<1.2) Chloride (98-107) mmol/L BUN (7-17) mg/dL Glucose (74-99) mg/dL POC Glucose (mg/dL) 123 H (75-99) mg/dL Microbiology - Last 24 Hours (Table) 11/01/17 07:38 Blood Culture - Preliminary Blood No Growth after 24 hours 10/31/17 09:00 Catheter Tip Culture - Final Picc Line 10/30/17 01:05 Gram Stain - Final Catheter Site Wound Culture - Final Staphylococcus aureus 10/29/17 09:25 Blood Culture Gram Stain - Final Blood Blood Culture - Final Acinetobacter lwoffi 10/29/17 09:13 Blood Culture Gram Stain - Final Blood Blood Culture - Final Acinetobacter lwoffi Laboratory Results WBC 7.4 k/uL (3.8-10.6) 11/02/17 08:18 RBC 3.45 m/uL (3.80-5.40) L 11/02/17 08:18 Hgb 7.1 gm/dL (11.4-16.0) L 11/02/17 08:18 Hct 25.4 % (34.0-46.0) L 11/02/17 08:18 MCV 73.4 fL (80.0-100.0) L 11/02/17 08:18 MCH 20.6 pg (25.0-35.0) L 11/02/17 08:18 MCHC 28.0 g/dL (31.0-37.0) L 11/02/17 08:18 RDW 16.8 % (11.5-15.5) H 11/02/17 08:18 Plt Count 298 k/uL (150-450) 11/02/17 08:18 Neutrophils % 59 % 11/02/17 08:18 Lymphocytes % 30 % 11/02/17 08:18 Monocytes % 6 % 11/02/17 08:18 Eosinophils % 3 % 11/02/17 08:18 Basophils % 0 % 11/02/17 08:18 Neutrophils # 4.3 k/uL (1.3-7.7) 11/02/17 08:18 Lymphocytes # 2.2 k/uL (1.0-4.8) 11/02/17 08:18 Monocytes # 0.4 k/uL (0-1.0) 11/02/17 08:18 Eosinophils # 0.2 k/uL (0-0.7) 11/02/17 08:18 Basophils # 0.0 k/uL (0-0.2) 11/02/17 08:18 Hypochromasia Marked 11/02/17 08:18 Anisocytosis Slight 11/02/17 08:18 Microcytosis Moderate 11/02/17 08:18 PT 26.9 sec (9.0-12.0) H 11/02/17 08:18 INR 3.0 (<1.2) H 11/02/17 08:18 Sodium 142 mmol/L (137-145) 11/02/17 08:18 Potassium 3.8 mmol/L (3.5-5.1) 11/02/17 08:18 Chloride 108 mmol/L (98-107) H 11/02/17 08:18 Carbon Dioxide 22 mmol/L (22-30) 11/02/17 08:18 Anion Gap 12 mmol/L 11/02/17 08:18 BUN 4 mg/dL (7-17) L 11/02/17 08:18 Creatinine 0.75 mg/dL (0.52-1.04) 11/02/17 08:18 Est GFR (MDRD) Af Amer >60 (>60 ml/min/1.73 sqM) 11/02/17 08:18 Est GFR (MDRD) Non-Af >60 (>60 ml/min/1.73 sqM) 11/02/17 08:18 Glucose 129 mg/dL (74-99) H 11/02/17 08:18 POC Glucose (mg/dL) 123 mg/dL (75-99) H 11/02/17 20:43 POC Glu Sorter Operator ID Carla Villeda 11/02/17 20:[address] Glu mg/dL 131 10/29/17 08:03 Hemoglobin A1c 6.2 % (4.0-6.0) H 10/29/17 08:03 Plasma Lactic Acid Jameson 1.1 mmol/L (0.7-2.0) 10/29/17 09:13 Calcium 8.6 mg/dL (8.4-10.2) 11/02/17 08:18 Phosphorus 3.3 mg/dL (2.5-4.5) 10/29/17 08:03 Magnesium 1.6 mg/dL (1.6-2.3) 10/29/17 08:03 Microbiology 11/01/17 07:38 Blood Blood Culture - Preliminary No Growth after 24 hours 10/31/17 09:00 Picc Line Catheter Tip Culture - Final 10/30/17 01:05 Catheter Site Gram Stain - Final 10/30/17 01:05 Catheter Site Wound Culture - Final Staphylococcus aureus 10/29/17 09:25 Blood Blood Culture Gram Stain - Final 10/29/17 09:25 Blood Blood Culture - Final Acinetobacter lwoffi 10/29/17 09:13 Blood Blood Culture Gram Stain - Final 10/29/17 09:13 Blood Blood Culture - Final Acinetobacter lwoffi 10/29/17 00:45 Foot - Right Gram Stain - Final 10/29/17 00:45 Foot - Right Wound Culture - Final Staphylococcus aureus Strep agalactiae - (group b) 10/29/17 09:25 Blood Blood Culture - Final 10/29/17 09:13 Blood Blood Culture - Final Assessment and Plan (1) Uncontrolled diabetes mellitus Current Visit: Yes Status: Acute Code(s): E11.65 - TYPE 2 DIABETES MELLITUS WITH HYPERGLYCEMIA SNOMED Code(s): 323596343 (2) Gram negative sepsis Narrative/Plan: This 37-year-old female has a very extensive past medical 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 She has diabetes and has had difficulties with peripheral vascular disease has had a transmetatarsal amputation to her left foot and amputation of great first and fifth toe of the right foot. Now is evidence of the plantar ulceration to the right foot for which [employer] silver will be applied. The patient's imaging study reveals evidence of significant abnormality to the feet, the intensity of the uptake in the bone scan does bring up the possibility of underlying fracture but osteomy this cannot be directly excluded. The patient does not have significant renal failure and may be a candidate for further imaging specifically MRI to delineate the underlying disease process to the foot. Wound culture is pending in current antibiotic therapy is appropriate. The patient's Jesus site appears to have some scant drainage. However is nontender. She's due for dressing changes will occur in a culture obtained of the drainage to further help direct her course of therapy. Concern would be since she is on TPN and temperature 102 to the possibility of infection to this catheter site has been in place since last April. TPN is on hold until there is evidence of negative blood cultures. If underlying bony infection is found to be prudent to determine if there is any outpatient data relating to this, this may help with considerations for outpatient hyperbaric oxygen therapy which may be needed for foot salvage. Leukocytosis is recommended a current underlying infection which is to the foot with ulceration and possible bloodstream infection from her Jesus catheter. On 10/30/2017 the patient continues to have fever. The no evidence of multiple blood cultures growing gram-negative bacilli. With this the patient's TPN catheter which is a Jesus catheter needs to be removed as it is now the most likely source of her sepsis. It is currently not being utilized for TPN. TPN is on hold until her sepsis further improves. At the time of the call with the gram-negative bacilli in the blood , Zosyn therapy continues. Surgical consult for removal of her Jesus catheter has been made. Follow blood cultures requested in the morning. Continue local wound care to the foot ulcer which is not likely the source of her current sepsis. 10/31/2017 patient is now showing some slight improvement since her IV access has been removed. Doing well with local wound care to the chronic foot ulcer. She is able to ingest some food however has a poor absorption rate. When she has completely cleared her infection she will need intravenous IV access reestablished. This will be needed for her TPN as well as a course of outpatient intravenous antibiotic therapy, given her short gut syndrome would not be able to effectively trust oral antibiotic therapy. 11/01/2017 or used or used Gram-negative bacilli from the blood is still being evaluated at the microbiology lab, we do await the final data for development of an outpatient plan. Also waiting for a negative blood culture so the PICC line may be placed so that she may resume her TPN. PICC line will also be utilized for outpatient edginess antibiotic therapy will be needed for treatment of the recent sepsis gram-negative in nature. Does have evidence of the wound also with some staph that is not MRSA. Continue the current local wound care which has been helpful. 11/02/2017 reveals that the patient has had further improvement. Other than some discomforts from pain she really is having a better day. If her cultures remain negative at PICC line can be replaced tomorrow so that she may complete her course of antibiotic therapy for her gram-negative sepsis that has cultured Acinetobacter. Wound cultures have strep and staph aureus. All are susceptible to Rocephin and will plan a 2 week course of intravenous Rocephin in the home setting along with her TPN can be started once a new PICC line has been placed. After infection is cleared she developed with Dr. Goff in the outpatient setting for replacement of her Jesus catheter. Current Visit: Yes Status: Acute Code(s): A41.50 - GRAM-NEGATIVE SEPSIS, UNSPECIFIED SNOMED Code(s): 447161191 (3) Infection due to Jesus catheter Current Visit: Yes Status: Acute Code(s): T80.219A - UNSP INFECTION DUE TO CENTRAL VENOUS CATHETER, INIT ENCNTR SNOMED Code(s): 405200055 (4) Diabetic ulcer of right foot with fat layer exposed Current Visit: Yes Status: Acute Code(s): E11.621 - TYPE 2 DIABETES MELLITUS WITH FOOT ULCER; L97.512 - NON-PRS CHRONIC ULCER OTH PRT RIGHT FOOT W FAT LAYER EXPOSED SNOMED Code(s): 695550344
[2017-11-03] MEDS: HYDROmorphone 2 MG TAB PO PRN ×3 (03:05→11:38)
[2017-11-03] MEDS: MORPHINE ORAL SOLN 10 MG/5 ML CUP PO PRN ×3 (04:49→21:13)
[2017-11-03] MEDS ORDERED: BENZOCAINE 20 % GEL 15 GM TUBE MM ONE (06:00)
[2017-11-03] MEDS ORDERED: BENZOCAIN/BENZALKONM ORAL GEL 12 GM TUBE MM PRN (06:44)
[2017-11-03] MEDS ORDERED: BENZOCAINE 20 % GEL 15 GM TUBE MM PRN (07:00)
[2017-11-03 07:31] LABS: Glucose,Whole Blood 133 mg/dL (75-99)
[2017-11-03] MEDS: ALPRAZolam 0.5 MG TAB PO SCH ×3 (08:23→21:12)
[2017-11-03] MEDS: PANTOPRAZOLE 40 MG TABLET PO SCH (08:23)
[2017-11-03] MEDS: CYCLOBENZAPRINE 10 MG TAB PO SCH ×3 (08:23→21:12)
[2017-11-03] MEDS: ARIPiprazole 5 MG TAB PO SCH (08:23)
[2017-11-03] MEDS: METOPROLOL TARTRATE 12.5 MG TAB PO SCH ×2 (08:23→21:12)
[2017-11-03] MEDS: GABAPENTIN 300 MG CAP PO SCH ×3 (08:23→21:12)
[2017-11-03] MEDS: PREGABALIN 100 MG CAP PO SCH ×3 (08:23→21:12)
[2017-11-03] MEDS: INSULIN ASPART 100 UNIT/ML 1 ML 10 ML VIAL SQ SCH ×4 (08:28→21:28)
[2017-11-03] MEDS: ASPIRIN 81 MG PO SCH (08:29)
[2017-11-03 08:43] LABS: INR 3.5 (<1.2); Prothrombin Time 31.5 sec (9.0-12.0)
[2017-11-03] MEDS: cefTRIAXone IN SWFI 2,000 MG/20 ML SYRINGE IVP SCH (08:45)
[2017-11-03] MEDS: WARFARIN 2.5 MG TAB PO SCH (09:52)
[2017-11-03] MEDS ORDERED: PHYTONADIONE ORAL 5 MG/5 ML ORAL.SYRG PO STA (10:43)
[2017-11-03 11:40] LABS: Glucose,Whole Blood 137 mg/dL (75-99)
[2017-11-03] MEDS: DESVENLAFAXINE SUCCINATE 50 MG TAB.ER.24H PO SCH (11:40)
--- NOTE | 2017-11-03 15:39 | P.GSCN ---
History of Present Illness Consult date: 11/03/17 Reason for Consult: Abdominal pain History of present illness: The patient's a 37-year-old female who is in the hospital for sepsis. I removed a PICC line from her over the weekend. She started developing pain on the right side of the abdomen. It stabbing pain. It's there all the time. Can be worse with coughing or sneezing. She has a history of mesenteric artery thrombosis for she underwent a subtotal small bowel resection. She has been eating and drinking okay today. She normally uses TPN for nourishment as she has minimal small bowel absorption. She hasn't been able to be on her TPN due to the sepsis. She is supposed to have a PICC line placed but her INR was too high today at 3.5. Denies fever or chills. She has been having diarrhea 8 or more times a day. No blood in the stools or dark tarry stools. This is fairly normal for her. She does give a history of C. diff colitis after her small bowel resection. She said that pain was very severe diarrhea was worse. Review of Systems - Constitutional Reports as per HPI Past Medical History Past Medical History: Diabetes Mellitus, Hypertension, Pneumonia Additional Past Medical History / Comment(s): murmur, [place] pne 3 years ago. pt stated that "2 months ago she coughed up some bloody mucous and was going to order a ct scan of chest but has'nt yet-no further episodes", neuropathy,"? seizure unk reason 4 months ago fell and fx rt fibula-casted /no sx.uti's, chronic pain, mesenteric thrombosis, occ heartburn, pvd(toe amputations, psoriases.per pt- had c-diff at [facility] and mrsa 2012 at [facility](face) History of Any Multi-Drug Resistant Organisms: MRSA Year Discovered:: 2012 at [facility](per pt) MDRO Source:: face Additional Past Surgical History / Comment(s): all toes on lt foot ampt, rt foot first,2nd,3rd toes amputated. 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 sx on fallopian tubes"put [place] in fallopian tubes". Past Anesthesia/Blood Transfusion Reactions: No Reported Reaction Smoking Status: Former smoker Additional Past Alcohol Use History / Comment(s): Patient was a smoker and started 15 years of age one and half to 2 packs per day and quit in August 2017. She occasionally uses marijuana. No medical marijuana card. She denies any other street drug use. She denies any alcohol use. Patient lives at home with her and 3 children. There are 2 dogs in the home. [facility] is in place. Patient is not employed. - Past Family History Brother(s) Family Medical History: Rheumatoid Arthritis (RA) Mother Family Medical History: Congestive Heart Failure (CHF), Myocardial Infarction ( [place]) Father Family Medical History: Diabetes Mellitus, Hyperlipidemia, Hypertension Medications and Allergies Home Medications Medication Instructions Recorded Confirmed Type ALPRAZolam [Xanax] 1 mg PO TID 10/28/17 10/28/17 History ARIPiprazole [Abilify] 5 mg PO DAILY 10/28/17 10/28/17 History Aspirin EC [Ecotrin Low Dose] 81 mg PO DAILY 10/28/17 10/28/17 History Cyclobenzaprine [Flexeril] 10 mg PO TID 10/28/17 10/28/17 History Desvenlafaxine Succinate [Pristiq] 100 mg PO DAILY@1200 10/28/17 10/28/17 History Gabapentin 600 mg PO TID 10/28/17 10/28/17 History Insulin Aspart [NovoLOG 80 unit SQ HS 10/28/17 10/28/17 History (formulary)] Insulin Aspart [NovoLOG See Protocol SQ AC-BID 10/28/17 10/28/17 History (formulary)] Metoprolol Tartrate [Lopressor] 12.5 mg PO BID 10/28/17 10/28/17 History Pregabalin [Lyrica] 200 mg PO TID 10/28/17 10/28/17 History Warfarin [Coumadin] 10 mg PO MOFR 10/28/17 10/28/17 History Warfarin [Coumadin] 12.5 mg PO SUTUWETHSA 10/28/17 10/28/17 History traMADol HCL [Ultram] 100 mg PO Q4HR PRN 10/28/17 10/28/17 History cefTRIAXone [Rocephin] 2,000 mg IVP Q24HR #14 ml 11/02/17 Rx Allergies Allergy/AdvReac Type Severity Reaction Status Date / Time duloxetine [From Cymbalta] AdvReac SEZIURES Verified 10/28/17 21:15 Surgical - Exam Osteopathic Statement: *. No significant issues noted on an osteopathic structural exam other than those noted in the History and Physical/Consult. Vital Signs Temp Pulse Resp BP Pulse Ox 98.0 F 86 14 111/79 96 10/28/17 21:00 10/28/17 21:00 10/28/17 21:00 10/28/17 21:00 10/28/17 21:00 - General well developed, well nourished, no distress - Eyes normal ocular movement - ENT normal mucosa - Neck trachea midline - Respiratory normal respiratory effort, clear to auscultation - Cardiovascular Rhythm: regular - Abdomen Abdomen: soft, tender (Right upper and lower quadrant), bowel sounds, surgical scars, no guarding, no rigid, no rebound, no distended Hernia: no incisional - Psychiatric oriented to time, oriented to person, oriented to place, speech is normal, memory intact Results - Labs 11/02/17 08:18 11/02/17 08:18 Abnormal Lab Results - Last 24 Hours (Table) 11/02/17 11/02/17 11/03/17 Range/Units 16:53 20:43 07:27 PT (9.0-12.0) sec INR (<1.2) POC Glucose (mg/dL) 110 H 123 H 133 H (75-99) mg/dL 11/03/17 11/03/17 Range/Units 08:13 11:34 PT 31.5 H (9.0-12.0) sec INR 3.5 H (<1.2) POC Glucose (mg/dL) 137 H (75-99) mg/dL Microbiology - Last 24 Hours (Table) 11/01/17 07:38 Blood Culture - Preliminary Blood No Growth after 48 hours - Imaging CT scan - abdomen: report reviewed, image reviewed Assessment and Plan (1) Abdominal pain Current Visit: Yes Status: Acute Code(s): R10.9 - UNSPECIFIED ABDOMINAL PAIN SNOMED Code(s): 18110855 (2) History of Clostridium difficile colitis Current Visit: Yes Status: Acute Code(s): Z86.19 - PERSONAL HISTORY OF OTHER INFECTIOUS AND PARASITIC DISEASES SNOMED Code(s): 247906788 (3) Acquired short bowel syndrome Current Visit: Yes Status: Acute Code(s): K91.2 - POSTSURGICAL MALABSORPTION , NOT ELSEWHERE CLASSIFIED SNOMED Code(s): 61147758 (4) Mesenteric artery thrombosis Current Visit: Yes Status: Acute Code(s): K55.069 - ACUTE INFARCTION OF INTESTINE, PART AND EXTENT UNSPECIFIED SNOMED Code(s): 171292302 (5) Gram negative sepsis Current Visit: Yes Status: Acute Code(s): A41.50 - GRAM-NEGATIVE SEPSIS, UNSPECIFIED SNOMED Code(s): 047697357 (6) Central line-associated bloodstream infection Current Visit: Yes Status: Acute Code(s): T80.211A - BLOODSTREAM INFECTION DUE TO CENTRAL VENOUS CATHETER, INIT SNOMED Code(s): 760013056 Plan: On computed tomography scan there is no sign of acute inflammatory process in her abdomen. The dilated loops of small bowel along with fluid in the colon would be expected in someone who has short bowel syndrome. I would doubt this is a recurrent mesenteric thrombosis. Her INR is currently therapeutic. She does have a history of C. diff colitis, I would recommend checking the stool for C. diff. We'll also do Hemoccult. Further recommendations to follow.
[2017-11-03] MEDS ORDERED: ONDANSETRON 4 MG/2 ML VIAL IVP PRN (16:50)
[2017-11-03 16:53] LABS: Glucose,Whole Blood 160 mg/dL (75-99)
[2017-11-03 20:43] LABS: Glucose,Whole Blood 127 mg/dL (75-99)
[2017-11-03] MEDS: INSULIN DETEMIR 100 UNIT/ML 10 ML VIAL SQ SCH (21:29)
--- NOTE | 2017-11-03 23:21 | P.PN ---
Subjective Progress Note Date: 11/03/17 Principal diagnosis: Fever This is a 37-year-old female patient who has history of previous amputations of the left 5 toes and toes one through 3 on the right foot secondary to osteomyelitis. Her last surgery was in July 2017. 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 Patient has underlying diabetes and she states her last hemoglobin A1c was 7 improved from 13 of last summer. Patient states that on the bottom of her right foot is started out as a blood blister that popped open and started draining a significant amount of blood. She has been following with a surgeon, Dr. Salas, in [place] and last saw him 2 days ago. She was also seen in the emergency center at [facility] on October 18 and a culture was obtained. Her has been packing the wound with iodoform gauze. She developed increased pain to the ankle and foot with a throbbing type pain, fever, chills, increased weakness and went to [facility]. A right foot x-ray showed a displaced pathologic fracture in the base of the first metatarsal and concern for osteomyelitis with increased soft tissue swelling as well. Patient was given Zosyn. Her white count was 18.8 and INR 2.17. Urinalysis was negative for urinary tract infection. Lactic acid 1.8. Patient was then transferred to [facility] emergency center for further evaluation and was directly admitted. Patient states she still has fevers with temperature max of 102.2. Patient is maintained on Zosyn. Wound and blood cultures are ordered. Patient quit smoking in August 2017. 10/30/2017 patient has evidence of some residual fever 101.2 in the last day. Trending to improvement. There is evidence of multiple positive blood cultures. 10/31/2017 fever is starting to improve, has been seen by the surgeon and the intravenous access has been removed. The patient is up and about feeling slightly better. Does have ongoing difficulties with her plaque psoriasis November 01, 2017 fever is resolved. She is feeling better since the catheter has been removed. She is inquiring as to any harm from not being on TPN. 11/02/2017 reveals the patient feeling better. She remains without significant fever and T-max is 97.5. She is denying other new symptoms other than some fatigue and that she's not been on TPN. She is a bit fatigued because she's had some pain medication today. Her pain control is much better. 11/03/2017 reveals the patient to have further improvement. Pain is better improved and she has no new acute complaints. She's having no significant fever no chills or rigors. Objective - Vital Signs Vital signs: Vital Signs Temp 98.4 F 11/03/17 22:52 Pulse 81 11/03/17 22:52 Resp 16 11/03/17 22:52 BP 137/72 11/03/17 22:52 Pulse Ox 96 11/03/17 22:52 Intake & Output 11/03/17 11/03/17 11/04/17 06:59 18:59 06:59 Intake Total 1200 Balance 1200 Weight 75.8 kg Intake: Oral 1200 Other: Voiding Method Toilet Bedside Commode # Voids 1 4 2 # Bowel Movements 2 - Exam Gen: This is a 37-year-old female. She is sitting up in bed and appears to be comfortable and in no acute distress. HEENT: Head is atraumatic, normocephalic. Pupils equal, round. Sclerae is anicteric. Conjunctiva pink. Mucous members of the mouth are moist. Dentition is in poor order. No thrush noted. NECK: Supple. No JVD. No lymphadenopathy. No thyromegaly. LUNGS: Clear to auscultation. No wheezes or rhonchi. No intercostal retractions. HEART: Regular rate and rhythm. No murmur. ABDOMEN: Soft. Bowel sounds are present. No masses. No tenderness. EXTREMITIES: Left foot has noted amputation of all 5 toes. Dorsalis pedis is weak. The right foot has evidence of the chronic ulceration plantar. It is responding well to current local wound care. This evidence of the plaques psoriasis especially of her left arm. NEUROLOGICAL: Patient is awake, alert and oriented x3. - Labs CBC & Chem 7: 11/02/17 08:18 11/02/17 08:18 Labs: Abnormal Lab Results - Last 24 Hours (Table) 11/03/17 11/03/17 11/03/17 Range/Units 07:27 08:13 11:34 PT 31.5 H (9.0-12.0) sec INR 3.5 H (<1.2) POC Glucose (mg/dL) 133 H 137 H (75-99) mg/dL Stool Occult Blood (Negative) 11/03/17 11/03/17 11/03/17 Range/Units 16:10 16:50 20:42 PT (9.0-12.0) sec INR (<1.2) POC Glucose (mg/dL) 160 H 127 H (75-99) mg/dL Stool Occult Blood Positive H (Negative) Microbiology - Last 24 Hours (Table) 11/01/17 07:38 Blood Culture - Preliminary Blood No Growth after 48 hours Laboratory Results WBC 7.4 k/uL (3.8-10.6) 11/02/17 08:18 RBC 3.45 m/uL (3.80-5.40) L 11/02/17 08:18 Hgb 7.1 gm/dL (11.4-16.0) L 11/02/17 08:18 Hct 25.4 % (34.0-46.0) L 11/02/17 08:18 MCV 73.4 fL (80.0-100.0) L 11/02/17 08:18 MCH 20.6 pg (25.0-35.0) L 11/02/17 08:18 MCHC 28.0 g/dL (31.0-37.0) L 11/02/17 08:18 RDW 16.8 % (11.5-15.5) H 11/02/17 08:18 Plt Count 298 k/uL (150-450) 11/02/17 08:18 Neutrophils % 59 % 11/02/17 08:18 Lymphocytes % 30 % 11/02/17 08:18 Monocytes % 6 % 11/02/17 08:18 Eosinophils % 3 % 11/02/17 08:18 Basophils % 0 % 11/02/17 08:18 Neutrophils # 4.3 k/uL (1.3-7.7) 11/02/17 08:18 Lymphocytes # 2.2 k/uL (1.0-4.8) 11/02/17 08:18 Monocytes # 0.4 k/uL (0-1.0) 11/02/17 08:18 Eosinophils # 0.2 k/uL (0-0.7) 11/02/17 08:18 Basophils # 0.0 k/uL (0-0.2) 11/02/17 08:18 Hypochromasia Marked 11/02/17 08:18 Anisocytosis Slight 11/02/17 08:18 Microcytosis Moderate 11/02/17 08:18 PT 31.5 sec (9.0-12.0) H 11/03/17 08:13 INR 3.5 (<1.2) H 11/03/17 08:13 Sodium 142 mmol/L (137-145) 11/02/17 08:18 Potassium 3.8 mmol/L (3.5-5.1) 11/02/17 08:18 Chloride 108 mmol/L (98-107) H 11/02/17 08:18 Carbon Dioxide 22 mmol/L (22-30) 11/02/17 08:18 Anion Gap 12 mmol/L 11/02/17 08:18 BUN 4 mg/dL (7-17) L 11/02/17 08:18 Creatinine 0.75 mg/dL (0.52-1.04) 11/02/17 08:18 Est GFR (MDRD) Af Amer >60 (>60 ml/min/1.73 sqM) 11/02/17 08:18 Est GFR (MDRD) Non-Af >60 (>60 ml/min/1.73 sqM) 11/02/17 08:18 Glucose 129 mg/dL (74-99) H 11/02/17 08:18 POC Glucose (mg/dL) 127 mg/dL (75-99) H 11/03/17 20:42 POC Glu [employer] Associate ID Carla Villeda 11/03/17 20:[address] Glu mg/dL 131 10/29/17 08:03 Hemoglobin A1c 6.2 % (4.0-6.0) H 10/29/17 08:03 Plasma Lactic Acid Jameson 1.1 mmol/L (0.7-2.0) 10/29/17 09:13 Calcium 8.6 mg/dL (8.4-10.2) 11/02/17 08:18 Phosphorus 3.3 mg/dL (2.5-4.5) 10/29/17 08:03 Magnesium 1.6 mg/dL (1.6-2.3) 10/29/17 08:03 Stool Occult Blood Positive (Negative) H 11/03/17 16:10 C. difficile (EIA) Intrp Negative (Negative) 11/03/17 16:10 Microbiology 11/01/17 07:38 Blood Blood Culture - Preliminary No Growth after 48 hours 10/31/17 09:00 Picc Line Catheter Tip Culture - Final 10/30/17 01:05 Catheter Site Gram Stain - Final 10/30/17 01:05 Catheter Site Wound Culture - Final Staphylococcus aureus 10/29/17 09:25 Blood Blood Culture Gram Stain - Final 10/29/17 09:25 Blood Blood Culture - Final Acinetobacter lwoffi 10/29/17 09:13 Blood Blood Culture Gram Stain - Final 10/29/17 09:13 Blood Blood Culture - Final Acinetobacter lwoffi 10/29/17 00:45 Foot - Right Gram Stain - Final 10/29/17 00:45 Foot - Right Wound Culture - Final Staphylococcus aureus Strep agalactiae - (group b) 10/29/17 09:25 Blood Blood Culture - Final 10/29/17 09:13 Blood Blood Culture - Final Assessment and Plan (1) Uncontrolled diabetes mellitus Current Visit: Yes Status: Acute Code(s): E11.65 - TYPE 2 DIABETES MELLITUS WITH HYPERGLYCEMIA SNOMED Code(s): 019806452 (2) Gram negative sepsis Narrative/Plan: This 37-year-old female has a very extensive past medical 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 She has diabetes and has had difficulties with peripheral vascular disease has had a transmetatarsal amputation to her left foot and amputation of great first and fifth toe of the right foot. Now is evidence of the plantar ulceration to the right foot for which Opticell silver will be applied. The patient's imaging study reveals evidence of significant abnormality to the feet, the intensity of the uptake in the bone scan does bring up the possibility of underlying fracture but osteomy this cannot be directly excluded. The patient does not have significant renal failure and may be a candidate for further imaging specifically MRI to delineate the underlying disease process to the foot. Wound culture is pending in current antibiotic therapy is appropriate. The patient's Jesus site appears to have some scant drainage. However is nontender. She's due for dressing changes will occur in a culture obtained of the drainage to further help direct her course of therapy. Concern would be since she is on TPN and temperature 102 to the possibility of infection to this catheter site has been in place since last April. TPN is on hold until there is evidence of negative blood cultures. If underlying bony infection is found to be prudent to determine if there is any outpatient data relating to this, this may help with considerations for outpatient hyperbaric oxygen therapy which may be needed for foot salvage. Leukocytosis is recommended a current underlying infection which is to the foot with ulceration and possible bloodstream infection from her Jesus catheter. On 10/30/2017 the patient continues to have fever. The no evidence of multiple blood cultures growing gram-negative bacilli. With this the patient's TPN catheter which is a Jesus catheter needs to be removed as it is now the most likely source of her sepsis. It is currently not being utilized for TPN. TPN is on hold until her sepsis further improves. At the time of the call with the gram-negative bacilli in the blood , Zosyn therapy continues. Surgical consult for removal of her Jesus catheter has been made. Follow blood cultures requested in the morning. Continue local wound care to the foot ulcer which is not likely the source of her current sepsis. 10/31/2017 patient is now showing some slight improvement since her IV access has been removed. Doing well with local wound care to the chronic foot ulcer. She is able to ingest some food however has a poor absorption rate. When she has completely cleared her infection she will need intravenous IV access reestablished. This will be needed for her TPN as well as a course of outpatient intravenous antibiotic therapy, given her short gut syndrome would not be able to effectively trust oral antibiotic therapy. 11/01/2017 or used or used Gram-negative bacilli from the blood is still being evaluated at the microbiology lab, we do await the final data for development of an outpatient plan. Also waiting for a negative blood culture so the PICC line may be placed so that she may resume her TPN. PICC line will also be utilized for outpatient edginess antibiotic therapy will be needed for treatment of the recent sepsis gram-negative in nature. Does have evidence of the wound also with some staph that is not MRSA. Continue the current local wound care which has been helpful. 11/02/2017 reveals that the patient has had further improvement. Other than some discomforts from pain she really is having a better day. If her cultures remain negative at PICC line can be replaced tomorrow so that she may complete her course of antibiotic therapy for her gram-negative sepsis that has cultured Acinetobacter. Wound cultures have strep and staph aureus. All are susceptible to Rocephin and will plan a 2 week course of intravenous Rocephin in the home setting along with her TPN can be started once a new PICC line has been placed. After infection is cleared she developed with Dr. Kimball in the outpatient setting for replacement of her Jesus catheter. 11/03/2017 reveals the patient to have further improvement and is pleased that she continues to have no fever. She still feels a bit weak and looks toward restarting her TPN to improve her energy level. PICC line to be placed tomorrow and this will allow the restart of the TPN and completion of her 2 week course of Rocephin for the gram-negative sepsis related to her IV access. Diarrhea improved without evidence of C. diff. The foot ulceration has evidence of staph aureus and strep as did the external aspect of the catheter for which Rocephin will be active against all isolated pathogens. Current Visit: Yes Status: Acute Code(s): A41.50 - GRAM-NEGATIVE SEPSIS, UNSPECIFIED SNOMED Code(s): 188324646 (3) Infection due to Jesus catheter Current Visit: Yes Status: Acute Code(s): T80.219A - UNSP INFECTION DUE TO CENTRAL VENOUS CATHETER, INIT ENCNTR SNOMED Code(s): 374465472 (4) Diabetic ulcer of right foot with fat layer exposed Current Visit: Yes Status: Acute Code(s): E11.621 - TYPE 2 DIABETES MELLITUS WITH FOOT ULCER; L97.512 - NON-PRS CHRONIC ULCER OTH PRT RIGHT FOOT W FAT LAYER EXPOSED SNOMED Code(s): 924227584
[2017-11-04] MEDS: MORPHINE ORAL SOLN 10 MG/5 ML CUP PO PRN ×2 (05:04→12:57)
[2017-11-04 06:29] LABS: Glucose,Whole Blood 118 mg/dL (75-99)
[2017-11-04 06:36] VITALS: BP 133/68; PULSE 77; TEMP 97.9
[2017-11-04 07:20] LABS: Glucose,Whole Blood 121 mg/dL (75-99)
[2017-11-04] MEDS: INSULIN ASPART 100 UNIT/ML 1 ML 10 ML VIAL SQ SCH ×2 (07:38→12:39)
[2017-11-04 08:29] LABS: INR 1.5 (<1.2)
[2017-11-04] MEDS: HYDROmorphone 2 MG TAB PO PRN (08:59)
[2017-11-04] MEDS: ALPRAZolam 0.5 MG TAB PO SCH (09:01)
[2017-11-04] MEDS: cefTRIAXone IN SWFI 2,000 MG/20 ML SYRINGE IVP SCH (09:02)
[2017-11-04] MEDS: ASPIRIN 81 MG PO SCH (09:03)
[2017-11-04] MEDS: GABAPENTIN 300 MG CAP PO SCH (09:03)
[2017-11-04] MEDS: METOPROLOL TARTRATE 12.5 MG TAB PO SCH (09:04)
[2017-11-04] MEDS: CYCLOBENZAPRINE 10 MG TAB PO SCH (09:04)
[2017-11-04] MEDS: PANTOPRAZOLE 40 MG TABLET PO SCH (09:04)
[2017-11-04] MEDS: ARIPiprazole 5 MG TAB PO SCH (09:04)
[2017-11-04] MEDS: PREGABALIN 100 MG CAP PO SCH (09:09)
[2017-11-04] MEDS ORDERED: LIDOCAINE 2% INJ 20 MG/ML SQ ONE (10:24)
--- NOTE | 2017-11-04 10:52 | P.PN ---
Subjective Progress Note Date: 11/03/17 Progress note being dictated for Dr. Thompson. Interval history: This is a 37-year-old female admitted with multiple complex medical issues including right foot ulcer, possible osteomyelitis MSSA as well as strep agalactiae Gropu B, Acinetobacter lwoffi, brittle diabetes mellitus. Maintained on IV antibiotics as per infectious disease. INR 3.5, received vitamin K, PICC line pending for tomorrow. Consuming 100% of diet with no nausea or vomiting. Blood sugars controlled. Denies chest pain, palpitations or increasing shortness of breath. Objective - Vital Signs Vital signs: Vital Signs Temp 98.2 F 11/03/17 16:50 Pulse 83 11/03/17 15:00 Resp 16 11/03/17 15:00 BP 135/82 11/03/17 15:00 Pulse Ox 98 11/03/17 15:00 Intake & Output 11/03/17 11/03/17 11/04/17 06:59 18:59 06:59 Intake Total 1200 Balance 1200 Weight 75.8 kg Intake: Oral 1200 Other: Voiding Method Toilet Bedside Commode # Voids 1 4 # Bowel Movements 2 - Exam PHYSICAL EXAM: VITAL SIGNS: [As above] GENERAL: Sitting up in bed, no acute distress HEENT: Conjunctivae normal. eyes normal. Oral mucosa moist NECK: No JVD. No thyroid enlargement. No LNs CARDIOVASCULAR: S1, S2 muffled. No murmur RESPIRATION: Breath sounds diminished in the bases. no rhonchi. No crackles. ABDOMEN: Soft, nontender . No guarding. no masses palpable.Bowel sounds heard. LEGS: Right foot osteomyelitis, dressing in place. PSYCHIATRY: Alert and oriented -3, mood and affect normal. NERVOUS SYSTEM: Cranial N 2-12 grossly normal. Moves all 4 limbs. Diffuse weakness No focal deficits. Skin: Right chest sutures Joints: No active swelling. No inflammation. Lymphatic system. No LN neck axilla or groin. - Labs CBC & Chem 7: 11/02/17 08:18 11/02/17 08:18 Labs: Abnormal Lab Results - Last 24 Hours (Table) 11/02/17 11/03/17 11/03/17 Range/Units 20:43 07:27 08:13 PT 31.5 H (9.0-12.0) sec INR 3.5 H (<1.2) POC Glucose (mg/dL) 123 H 133 H (75-99) mg/dL Stool Occult Blood (Negative) 11/03/17 11/03/17 11/03/17 Range/Units 11:34 16:10 16:50 PT (9.0-12.0) sec INR (<1.2) POC Glucose (mg/dL) 137 H 160 H (75-99) mg/dL Stool Occult Blood Positive H (Negative) Microbiology - Last 24 Hours (Table) 11/01/17 07:38 Blood Culture - Preliminary Blood No Growth after 48 hours Assessment and Plan Assessment: 1. Right foot ulcer, diabetic ulcer, possibly osteomyelitis MSSA, strep agalactiae group B 2. Acinetobacter lwoffi 3. Sepsis , possibly central line related,PICC line pending 2. Diabetes mellitus type 2, 3. Right central line for IV access for home TPN, removed 4. 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 multiple toe amputations 6. Hypertension 7. Seizure disorder 8. Coumadin monitoring 9. History of MRSA Plan: Continue on current medication regime ,monitoring and symptomatic treatment. Maintain IV antibiotics as per infectious disease. As mentioned above received vitamin K 5 mg for elevated INR. PICC line planned for tomorrow. Discharge planning in progress for tomorrow after PICC line placement. Repeat labs ordered. Further requisition to follow. The impression and plan of care has been dictated as directed. : I performed a history and examination of this patient, discussed the same with the dictator. I agree with the dictator's note ,documented as a scribe. Any additional findings or plans will be noted.
[2017-11-04 11:29] LABS: Glucose,Whole Blood 153 mg/dL (75-99)
--- NOTE | 2017-11-04 12:05 | P.PN ---
Subjective Progress Note Date: 11/04/17 Principal diagnosis: Abdominal pain Patient says her pain is improved. PICC line was replaced today. She is anxious to go home today. She is tolerating a diet. Objective - Vital Signs Vital signs: Vital Signs Temp 97.9 F 11/04/17 06:35 Pulse 77 11/04/17 06:35 Resp 16 11/04/17 06:35 BP 133/68 11/04/17 06:35 Pulse Ox 96 11/04/17 06:35 Intake & Output 11/03/17 11/04/17 11/04/17 18:59 06:59 18:59 Intake Total 1200 Balance 1200 Weight 75.8 kg Intake: Oral 1200 Other: Voiding Method Toilet Toilet # Voids 4 2 1 # Bowel Movements 2 - Exam Abdomen: Soft, nondistended, mild upper abdominal tenderness - Labs CBC & Chem 7: 11/02/17 08:18 11/02/17 08:18 Labs: Abnormal Lab Results - Last 24 Hours (Table) 11/03/17 11/03/17 11/03/17 Range/Units 16:10 16:50 20:42 PT (9.0-12.0) sec INR (<1.2) POC Glucose (mg/dL) 160 H 127 H (75-99) mg/dL Stool Occult Blood Positive H (Negative) 11/04/17 11/04/17 11/04/17 Range/Units 06:26 07:03 07:55 PT 14.0 H (9.0-12.0) sec INR 1.5 H (<1.2) POC Glucose (mg/dL) 118 H 121 H (75-99) mg/dL Stool Occult Blood (Negative) 11/04/17 Range/Units 11:23 PT (9.0-12.0) sec INR (<1.2) POC Glucose (mg/dL) 153 H (75-99) mg/dL Stool Occult Blood (Negative) Microbiology - Last 24 Hours (Table) 11/01/17 07:38 Blood Culture - Preliminary Blood No Growth after 72 hours Assessment and Plan (1) Abdominal pain Narrative/Plan: Continue diet as tolerated. TPN as outpatient to continue. Follow-up with Dr. Kimball postdischarge to discuss possible Jesus versus Port-A-Cath. Current Visit: Yes Status: Acute Code(s): R10.9 - UNSPECIFIED ABDOMINAL PAIN SNOMED Code(s): 98444552
[2017-11-04] MEDS: DESVENLAFAXINE SUCCINATE 50 MG TAB.ER.24H PO SCH (12:39)
--- NOTE | 2017-11-04 16:46 | IR ---
EXAMINATION TYPE: IR cvc insert >=5 years DATE OF EXAM: 11/04/2017 COMPARISON: NONE CLINICAL HISTORY: IV access, Needs long-term intravenous access for total parenteral nutrition, antib iotics. PROCEDURE: After informed consent, the skin overlying the right cephalic vein was localized with ultrasound and noted to be compressible and patent. An ultrasound image was obtained and submitted on the patient's chart. The overlying skin was prepped and draped and Lidocaine was used for local anesthesia. A sk in jazmyne was made with a scalpel. Access was gained to the vein under ultrasound guidance with a 21 g auge needle and a 0.018 inch wire was advanced. Access site was dilated with Peel-Away sheath and ca theter tailored to the appropriate length and advanced such that the distal tip is at the cavoatrial junction. Spot image was obtained verifying placement. Catheter was fixed to the skin with suture a nd a sterile dressing was placed following hemostasis. Catheter was aspirated and flushed with salin e. Patient was discharged in stable condition without complication.Maximal barrier technique is util ized. Ultrasound image is documented on the chart. Ultrasound used with sterile technique. Fluoro time and fluoroscopic images submitted to document procedure: 14 intraoperative C-arm images, 0.2 minutes fluoroscopy time IMPRESSION: STATUS POST ULTRASOUND AND FLUOROSCOPIC GUIDED PICC LINE PLACEMENT, READY FOR USE. THIS PROCEDURE WAS PERFORMED BY THE UNDERSIGNED.
--- NOTE | 2017-11-04 22:54 | DS ---
DISCHARGE SUMMARY DATE OF SERVICE: 11/04/2017. FINAL DIAGNOSES: 1. Right foot ulcer, diabetic ulcer, possible osteomyelitis with emesis and Streptococcus agalactiae group B. 2. Acinetobacter lwoffi sepsis possibly secondary to central line related, which is removed. 3. Diabetes mellitus type 2. 4. History of right central line for IV access and home total parenteral nutrition, removed. 5. History of small-bowel resection for inferior mesenteric thrombosis apparently. 6. Multiple toe amputation history. 7. Hypertension. 8. History of seizure disorder. 9. Coumadin monitoring. 10.History of methicillin-resistant Staphylococcus aureus. DISCHARGE DISPOSITION: The patient will be discharged in stable condition with guarded prognosis. TOTAL TIME TAKEN: 35 minutes. HISTORY OF PRESENT ILLNESS: This 37-year-old woman with a past medical history of multiple medical problems was admitted with features of osteomyelitis as well as sepsis and infected catheter was removed and a PICC line was inserted by Radiology. The patient improved significantly. EXAM: VITAL SIGNS: Stable. CARDIOVASCULAR: S1, S2 muffled. ABDOMEN: Soft. NEUROLOGIC: No focal deficits. The patient discharged in stable condition. DIET: Cardiac. ACTIVITY: Limited until followup. Follow up with Dr. Rose Walter in 2 to 3 days. Follow up with Dr. Hills and Dr. Goff, Surgery as advised. MEDICATIONS: 1. Xanax 1 mg p.o. t.i.d. 2. Abilify 5 mg p.o. daily. 3. Ecotrin 81 mg p.o. daily. 4. Orajel 0.5 mg q.i.d. 5. Rocephin 2 g IV daily for 2 weeks. 6. Flexeril 10 mg p.o. t.i.d. 7. Pristiq 100 mg p.o. daily. 8. Gabapentin 600 mg p.o. t.i.d. 9. Levemir 10 units subcu q.h.s. 10.Humalog scale as before. 11.Lopressor 12.5 mg p.o. b.i.d. 12.Protonix 40 mg p.o. daily. 13.Lyrica 200 mg p.o. t.i.d. 14.Ultram 100 mg q.4h p.r.n. 15.Coumadin 10 mg Thursday, Thursday and 12.5 mg on other days. Monitor CBC, BMP. PT/INR to be monitored closely. MMSELENAL / IJN: [id number] /
== END 2017-11-04 15:05 | disposition home health service (06) | DRG 314 ==
LOC: 4MS4W 19:47
PROVIDERS: ADMIT Internal Medicine; ATTEND Internal Medicine
PROC: 05PYX3Z Removal of Infusion Device from Upper Vein, External Approach (ICD-10-PCS; 2017-10-31)
PROC: 02HV33Z Insertion of Infusion Device into Superior Vena Cava, Percutaneous Approach (ICD-10-PCS; principal; 2017-11-04 10:00)
DX: T80.211A Bloodstream infection due to central venous catheter, initial encounter (principal); A41.50 Gram-negative sepsis, unspecified; E11.42 Type 2 diabetes mellitus with diabetic polyneuropathy; K91.2 Postsurgical malabsorption, not elsewhere classified; M86.9 Osteomyelitis, unspecified; M84.474A Pathological fracture, right foot, initial encounter for fracture; E11.69 Type 2 diabetes mellitus with other specified complication; E11.621 Type 2 diabetes mellitus with foot ulcer; E11.51 Type 2 diabetes mellitus with diabetic peripheral angiopathy without gangrene; E11.65 Type 2 diabetes mellitus with hyperglycemia; L97.519 Non-pressure chronic ulcer of other part of right foot with unspecified severity; G40.909 Epilepsy, unspecified, not intractable, without status epilepticus; L40.0 Psoriasis vulgaris; G89.4 Chronic pain syndrome; I10 Essential (primary) hypertension; F12.90 Cannabis use, unspecified, uncomplicated; B95.61 Methicillin susceptible Staphylococcus aureus infection as the cause of diseases classified elsewhere; F32.9 Major depressive disorder, single episode, unspecified; Z87.01 Personal history of pneumonia (recurrent); Z86.14 Personal history of Methicillin resistant Staphylococcus aureus infection; Z79.01 Long term (current) use of anticoagulants; Z87.891 Personal history of nicotine dependence; Z82.61 Family history of arthritis; Z88.8 Allergy status to other drugs, medicaments and biological substances; Z90.49 Acquired absence of other specified parts of digestive tract; Z79.899 Other long term (current) drug therapy; Z79.4 Long term (current) use of insulin; Z89.429 Acquired absence of other toe(s), unspecified side; Z83.3 Family history of diabetes mellitus; Z82.49 Family history of ischemic heart disease and other diseases of the circulatory system; Z86.19 Personal history of other infectious and parasitic diseases; Z89.422 Acquired absence of other left toe(s); Z89.421 Acquired absence of other right toe(s); Z89.411 Acquired absence of right great toe; Z51.81 Encounter for therapeutic drug level monitoring; Z79.82 Long term (current) use of aspirin
CPT/HCPCS: 36569; 74176; 76937; 77001; 78315; 80048; 82272; 83036; 83605; 83735; 84100; 85025; 85610; 87040; 87070; 87077; 87186; 87205; 87324